=== PATIENT | female | born 1975 | race Caucasian/White ===

== ENCOUNTER 2020-06-09 12:45 | Emergency (ER) | payer OTHER, BC, SELFPAY ==
--- NOTE | 2020-06-09 12:57 | ED.UPPEXIN ---
HPI - Extremity Injury (Upper) General Chief Complaint: Extremity Problem,Nontraumatic Stated Complaint: Arm injury Time Seen by Provider: 06/09/20 13:02 Source: patient and RN notes reviewed History of Present Illness HPI narrative: Patient is a 44-year-old female who presents the urgent care with complaints of right bicep pain. 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 Patient states she has been doing this for the last 6 months and is noted the pain does subside when she is off work for several days. Patient has taken naproxen intermittently for the pain and states that sometimes it gets better and sometimes it is worse . Patient has used ice to sleep at night. Denies of any known trauma or injury. No other acute complaints. No acute distress noted. Patient read the plan of care. Related Data Home Medications Medication Instructions Recorded Confirmed vortioxetine [Trintellix] 10 mg PO DAILY 09/15/19 06/09/20 levonorgestrel 20 mcg/24 hours (5 1 device I-UTERINE ONCE 12/03/19 06/09/20 yrs) 52 mg intrauterine device Allergies Allergy/AdvReac Type Severity Reaction Status Date / Time No Known Allergies Allergy Verified 12/23/19 10:11 Review of Systems Review of Systems: Narrative: CONSTITUTIONAL: Denies fever, chills, or sweats. EYES: Denies visual changes, redness, or discharge. ENT: Denies rhinorrhea, congestion, sore throat, or otalgia. CARDIOVASCULAR: Denies chest pain, palpitations, or edema. RESPIRATORY: Denies cough or dyspnea. GASTROINTESTINAL: Denies abdominal pain, nausea, vomiting, or diarrhea. GENITOURINARY: Denies dysuria or hematuria. SKIN: Denies rash or itching. MUSCULOSKELETAL: Reports of right upper arm pain NEUROLOGIC: Denies headache, numbness, or weakness. All other systems reviewed are negative, except as documented in HPI. [facility] Social History Social History Smoking status: Never smoker Second hand tobacco smoke exposure: No Alcohol intake: current Comments At the time of my signature, I reviewed and agree with the nursing past medical, surgical, social, and family history. There is no relevant family history pertinent to the patient complaint. Exam Narrative: Exam Narrative: GENERAL: This is a well-nourished, well-developed patient, in no apparent distress. HEAD: normocephalic, atraumatic. EYES: PERRL. Sclera clear/white. Vision is grossly intact. EARS: External ears normal NOSE: External nose normal with no obvious nasal discharge, nares without redness, no rhinorrhea. THROAT: Mucous membranes moist NECK: Neck supple NEURO: awake, alert, and oriented to person, place and time. There were no obvious focal neurologic abnormalities. EXTREMITIES: No obvious Jadon sign to the right upper arm, no tenderness, no right arm deformity, range of motion within normal limits to right upper extremity with positive strong right radial pulse and capillary refill less than 2 seconds. Course Vital Signs Vital signs: Vital Signs Temperature 97.9 F 06/09/20 12:58 Pulse Rate 60 06/09/20 12:58 Respiratory Rate 20 06/09/20 12:58 Blood Pressure 136/69 06/09/20 12:58 Pulse Oximetry 99 06/09/20 12:58 Temperature 97.9 F 06/09/20 12:58 Pulse Rate 60 06/09/20 12:58 Respiratory Rate 20 06/09/20 12:58 Blood Pressure 136/69 06/09/20 12:58 Pulse Oximetry 99 06/09/20 12:58 Reviewed MDM - Extremity Injury (Upper) MDM Narrative Medical decision making narrative: Patient is aware that her pain is likely due to repetitiveness of muscle use. Advised the patient to continue using naproxen as needed for pain. May also use Tylenol or ibuprofen. Do not take NSAIDs together such as using naproxen and ibuprofen. May continue to use ice or heating pad for 20-minute intervals but do not sleep with the ice pack
[2020-06-09 12:58] VITALS: BP 136/69; PULSE 60; RESP 20; TEMP 36.6; O2SAT 99
== END 2020-06-09 13:17 | disposition home or self-care (01) ==
PROVIDERS: Emergency Provider Nurse Practitioner Family; PCP Family Medicine
DX: M75.21 Bicipital tendinitis, right shoulder (principal)
CPT/HCPCS: 99213; G0463

== ENCOUNTER 2020-12-22 16:14 | Outpatient (CLI) | payer OTHER, BC, SELFPAY ==
--- NOTE | 2020-12-22 16:35 | ECG_ITS ---
Measurements Intervals [place] Rate: 63 P: 43 [place]: 166 QRS: -17 QRSD: 115 T: 2 QT: 429 QTc: 441 Interpretive Statements SINUS RHYTHM WITH SINUS ARRHYTHMIA RSR' IN V1 OR V2, CONSIDER RIGHT VENTRICULAR HYPERTROPHY OR RIGHT VCD ST-T WAVE ABNORMALITY IN ANTERIOR LEADS- CONSIDER ISCHEMIA ABNORMAL ECG Electronically Signed On 12-22-2020 19:01:48 ENAMEL BUFFER by Aquilino Suggs D.O.
[2020-12-22 17:24] LABS: Anion Gap 6 mmol/L (8-16); Blood Urea Nitrogen 14 mg/dL (7-17); Calcium 9.4 mg/dL (8.4-10.2); Carbon Dioxide 34 mmol/L (22-30); Chloride 101 mmol/L (98-107); Estimated Glomerular Filt Rate > 60; Glucose 110 mg/dL (65-105); Potassium 3.3 mmol/L (3.4-5.0); Sodium 141 mmol/L (137-145)
== END 2020-12-22 16:15 | disposition home or self-care (01) ==
PROVIDERS: PCP Family Medicine; Visit Provider Anesthesiology
DX: Z01.818 Encounter for other preprocedural examination (principal); I10 Essential (primary) hypertension; R94.31 Abnormal electrocardiogram [ECG] [EKG]
CPT/HCPCS: 36415; 80048; 93005

== ENCOUNTER → 2020-12-26 02:12 | Outpatient (CLI) | payer OTHER, BC, SELFPAY ==
[2020-12-26 18:21] LABS: SARS-CoV-2 RNA PCR Negative
== END ==
PROVIDERS: PCP Family Medicine; Visit Provider Orthopaedic Surgery
DX: Z01.812 Encounter for preprocedural laboratory examination (principal); Z20.822 Contact with and (suspected) exposure to COVID-19
CPT/HCPCS: C9803; U0003; U0005

== ENCOUNTER 2020-12-29 00:32 | Day surgery (SDC) | payer OTHER, SELFPAY ==
[2020-12-22 13:50] VITALS: BMI 49.4
--- NOTE | 2020-12-28 11:58 | WPDANESEPPF ---
Anes - Initial Pre Proc Eval Procedure: Operation Date: 12/29/20 07:30 Proposed Procedures p Arthroscopic Subacromial Decompression, Rotator Cuff Repair Right Shoulder, Proceed As Indicated - Roque Quiñones MD Date/Time: 12/28/20 11:58 Surgeon: Roque Quiñones MD Pre Op Diagnosis: Rotator Cuff Tendonitis With Partial Thick.Rotator Patient Data Age: 45 Gender: F Height: 1.63 m Weight: 130.63 kg Allergies Allergy/AdvReac Type Severity Reaction Status Date / Time No Known Allergies Allergy Verified 12/26/20 08:36 Home Medications Medication Instructions Recorded Confirmed Type levonorgestrel 20 mcg/24 hours (6 1 device I-UTERINE ONCE 12/03/19 12/27/20 History yrs) 52 mg intrauterine device lisinopril 10 1 tablet PO DAILY #90 tablet 02/26/20 12/27/20 Rx mg-hydrochlorothiazide 12.5 mg tablet levothyroxine 125 mcg tablet 125 mcg PO DAILY #90 tablet 05/10/20 12/27/20 Rx vortioxetine 10 mg tablet 10 mg PO DAILY #90 tablet 06/15/20 12/27/20 Rx omeprazole 10 mg capsule,delayed 10 mg PO DAILY 06/30/20 12/27/20 History release Patient hx anesthesia problems: none Family hx anesthesia problems: none PMFSH Past Medical History Medical History (Updated 12/27/20 @ 09:07 by Mark Lee MD) Adjustment disorder, unspecified Anxiety Biceps tendinopathy of right upper extremity Essential (primary) hypertension Hyperlipidemia, unspecified Hypertension Hypothyroid Hypothyroidism (acquired) Impingement syndrome of right shoulder Migraine with aura, not intractable, without status migrainosus Morbid obesity with BMI of 40.0-44.9, adult Obstructive sleep apnea (adult) (pediatric) KRISTOFER (obstructive sleep apnea) Partial tear of right rotator cuff Perimenopausal Prehypertension Vaginal delivery x 2 Surgical History Surgical History H/O hernia repair (~2014) History of cholecystectomy History of dilatation and curettage (~2002) Previous section Family History Family History Mother Myocardial infarction Diabetes mellitus Grandparent Cancer, colon Sibling Hypertension Hypolipidemia Social History Social History Smoking status: Never smoker Second hand tobacco smoke exposure: No Alcohol intake: current Spiritual care concerns: No Anes - Eval Final PreProcedure Day of Procedure 12/28/20 11:58 Patient weight: obese Heart: regular rate and rhythm Lungs: clear to auscultation and normal air movement Airway: Mallampati scale class II Neurological: alert and oriented Last oral intake: >/= 8 hours ASA classification: III Emergent: no Anesthetic plan: proceed Anesthesia type and monitoring: general LMA and ETT Informed Consent: The patient's anesthetic plan and its attendant risks and benefits were discussed with the patient/family/POA. Questions were solicited and answers provided to the satisfaction of the patient/family/POA.
--- NOTE | 2020-12-28 11:59 | WPDANESPNB ---
Anes - Peripheral Nerve Block Date/Time: 12/28/20 11:59 I have discussed with the patient/family/POA the placement of a peripheral nerve block for post-operative pain management, including associated risks, benefits, complications, and side effects. Alternative methods of post-operative analgesia were detailed. Questions were solicited and answers provided to the satisfaction of the patient/family/POA. Time-Out: A pre-procedural Time-Out was completed immediately before starting the procedure and confirmed: Patient Identification, Site, Procedure, Patient Position and the Availability of Requisite Equipment. Clinical Indications: Acute post-operative pain management requested by the operative surgeon. Nerve Block Insertion Note Needle: 22 gauge, stimulating, insulated echogenic needle.
[2020-12-29] VITALS (14 sets, daily range): BP systolic 103–153; BP diastolic 56–86; PULSE 60–84; RESP 10–20; TEMP 36.1–36.3; O2SAT 90–98
[2020-12-29] MEDS: ACETAMINOPHEN 500 MG TABLET 1000 MG PO (07:05)
[2020-12-29] MEDS: LACTATED RINGERS 1,000 ML 30 ML IV CONT ×2 (07:07→09:24)
[2020-12-29] MEDS: KETOROLAC 15 MG/ML VIAL (*BKC) IV PUSH (07:08)
--- NOTE | 2020-12-29 07:11 | WPDHPUPDATE1 ---
History and Physical Update Update Date/Time: 12/29/20 07:11 History and Physical has been reviewed, including an updated exam of the patient. There are NO changes in the patient's condition. Risks, benefits, and alternatives have been discussed and questions answered. Patient agrees to proceed with procedure.
[2020-12-29] MEDS: ceFAZolin 3 GM/D5W 100 ML 100 ML IVPB (08:14)
[2020-12-29] MEDS: BUPIVACAINE/EPINEPHRINE 0.5% 30 ML VIAL INFILTRATE (08:15)
[2020-12-29] MEDS: ONDANSETRON INJ 4 MG/2 ML VIAL IV PUSH (09:57)
[2020-12-29] MEDS: SCOPOLAMINE 1.5 MG PATCH TRANSDERM (10:05)
[2020-12-29] MEDS: HALOPERIDOL LACTATE 5 MG/ML VIAL 1 MG IV PUSH (10:06)
[2020-12-29] MEDS: diphenhydrAMINE HCl INJ 50 MG/ML VIAL 25 MG IV PUSH (10:56)
--- NOTE | 2020-12-29 11:45 | PM.PROC ---
Procedure Note - Detailed Date of procedure: 12/29/20 Pre-op diagnosis: Rotator Cuff Tendonitis With Partial Thick.Rotator Post-op diagnosis: other (1. Impingement syndrome shoulder 2. High-grade partial bursal side rotator cuff tear.) Procedure performed: 1. Arthrosocopic rotator cuff repair. 2. Arthroscopic subacromial decompression. Description of procedure: The rotator cuff was torn on the bursal side with a split. No retraction. Involvement of approximately 50% of the tendon. This corresponded to the area of interstitial partial tear. Bursal tear was not observed on the MRI likely due to the lack of tissue retraction or displacement. Tear was repaired with a single suture anchor and a modified Arun-Harshil repair technique. Subacromial spur treated with acromioplasty. Low-grade less than 15% partial articular tear noted in the infraspinatus. This was treated with debridement. The remaining articular structures were entirely normal. Slight hyperemia at the area of the bursal side tear noted on the articular side at the supraspinatus tendon. The tissue otherwise appeared normal and there was a normal anatomic cable. Implants: Tornier Piton anchor 2.8mm double suture loaded. Anesthesia: GETA and regional Surgeon: Roque Quiñones MD Ui Ux Engineer: Tuyet Aceves PA-C Estimated blood loss (mL): 10 Complications: None Condition: stable Disposition: PACU Findings: Physician assistant professor of life sciences, Tuyet Aceves PA-C, required for surgery; including patient positioning, draping, arthroscopic camera operation, maintaining instrument position, suture retrieval, wound closure, and dressing and sling placement. Brief history: The patient complained of persistent pain with overhead and reaching activities. Pain persisted despite physical therapy and cortisone injections. Operative details: Patient is extremely obese. Interscalene block was deferred. Preoperative antibiotics were given. The patient was brought to the operating room. Careful positioning in the lateral decubitus position was accomplished. The head neck were carefully positioned. An axillary roll was placed. The shoulder was examined. The shoulder was prepped and draped in the usual sterile fashion. Standard posterior and anterior arthroscopic portals were established. The shoulder was inspected. Light debridement of the articular posterior cuff performed. Attention was turned to the subacromial space. A complete bursectomy was performed. An accessory lateral portal was created. The acromion was clearly visualized. The coracoacromial ligament was released. Careful acromioplasty was performed utilizing views from both lateral and posterior. The area of the partial articular tear was marked. On the bursal side there was only mild evidence of impingement but the tendon felt very robust and essentially normal to palpation. More anteriorly at the supraspinatus there was significant bursal side tear with splitting into the delaminated area of supraspinatus tendon. This was amenable to repair and the footprint was lightly debrided. Bone quality was excellent and the bioabsorbable anchor cracked upon attempted insertion. It was removed and a metallic anchor was placed in its place. The sutures were passed in a modified Arun-Harshil configuration. The antegrade suture passer was used. The anterior and posterior suture limbs brought the opposed ends of the tendon together anatomically. The medial to lateral suture provided nice compression of the tendon on the rotator cuff footprint. The arthroscopic instruments were removed. The wounds were closed with interrupted 3-0 Monocryl suture followed by Steri-Strips. A sterile dressing was applied with a sling. The patient was extubated and brought to the recovery room in stable condition. There were no complications.
[2020-12-29] MEDS: oxyCODONE HCL (*CRX) 5 MG TAB IR PO (12:33)
== END 2020-12-29 13:24 | disposition home or self-care (01) ==
PROVIDERS: PCP Family Medicine; Visit Provider Orthopaedic Surgery
PROC: (CPT 29805; principal; 2020-12-29 07:30)
DX: M75.111 Incomplete rotator cuff tear or rupture of right shoulder, not specified as traumatic (principal); M75.41 Impingement syndrome of right shoulder; I10 Essential (primary) hypertension; E78.5 Hyperlipidemia, unspecified; E03.9 Hypothyroidism, unspecified; G47.33 Obstructive sleep apnea (adult) (pediatric); F41.9 Anxiety disorder, unspecified; E66.01 Morbid (severe) obesity due to excess calories; Z68.42 Body mass index [BMI] 45.0-49.9, adult
CPT/HCPCS: 29827; 29826; A4565; A9270; C1713; J0690; J1100; J1170; J1200; J1630; J1885; J2250; J2405; J2704; J2710; J3010; J7120

== ENCOUNTER 2021-04-19 22:53 | Emergency (ER) | payer BC, SELFPAY ==
[2021-04-19 22:54] VITALS: BP 186/103; PULSE 82; RESP 16; TEMP 36.7; O2SAT 95
--- NOTE | 2021-04-19 23:00 | PC.NURSE ---
verbal lab order from erp dr bernardo.
[2021-04-19 23:12] LABS: Basophils Absolute Auto 0.1 K/mm3 (0.0-0.1); Basophils Percent Auto 0.7 % (0.2-1.2); Eosinophils Absolute Auto 0.3 K/mm3 (0-0.3); Hematocrit 41.3 % (37.0-47.0); Hemoglobin 13.7 g/dL (12.0-15.0); Immature Granulocyte Absolute 0.03 K/mm3 (0.00-0.031); Immature Granulocyte Percent A 0.4 % (0-0.5); Lymphocytes Percent Auto 38.3 % (18.3-44.2); Mean Corpuscular HGB Conc 33.2 g/dl (32-36); Mean Corpuscular Hemoglobin 30.2 pg (26-34); Mean Corpuscular Volume 91.2 fl (80-100); Mean Platelet Volume 10.1 fl (7.4-10.4); Monocytes Absolute Auto 0.5 K/mm3 (0.1-0.6); Monocytes Percent Auto 6.9 % (2.6-8.5); Neutrophils Absolute Auto 3.8 K/mm3 (1.3-6.7); Neutrophils Percent Auto 49.7 % (45.5-73.1); Platelet Count Result 284 k/mm3 (150-375); Red Blood Count 4.53 M/mm3 (4.2-5.4); Red Cell Distribution Width 11.9 % (11.5-14.5); White Blood Count 7.6 K/mm3 (4.5-10.0)
[2021-04-19 23:21] LABS: INR 0.9
[2021-04-19 23:22] LABS: Partial Thromboplastin Time 28.9 SECONDS (22.3-36.8)
[2021-04-19 23:24] LABS: Anion Gap 9 mmol/L (8-16); Blood Urea Nitrogen 13 mg/dL (7-17); Calcium 9.4 mg/dL (8.4-10.2); Carbon Dioxide 29 mmol/L (22-30); Chloride 103 mmol/L (98-107); Estimated CRCL calculation 108 ml/min; Estimated Glomerular Filt Rate > 60; Glucose 131 mg/dL (65-105); Sodium 141 mmol/L (137-145)
[2021-04-19 23:33] LABS: D Dimer < 0.22 ug/mL (<0.48)
--- NOTE | 2021-04-20 00:33 | ED.GENADULT ---
HPI - General Adult General Chief complaint: Unspecified Stated complaint: blood clot left leg Time Seen by Provider: 04/20/21 00:12 Source: patient Mode of arrival: ambulatory Limitations: no limitations History of Present Illness HPI narrative: 45-year-old with history of hypertension, hyperlipidemia, varicosities of the legs here with complaints of pain and swelling on the left thigh. Patient states that she woke was sitting on the couch started to notice some pain and swelling on the left thigh. She is worried that it could be a blood clot. No previous history of any DVTs in the past. . She denies any shortness of breath or chest pain. Onset (ago): hour(s) (2) Location: lower extremity (Left thigh) Radiation: non-radiation Severity: mild Quality: aching Pain Consistency: constant Relieving factors: none Exacerbating factors: none Associated symptoms: denies other symptoms Related Data Home Medications Medication Instructions Recorded Confirmed levonorgestrel 20 mcg/24 hours (6 1 device I-UTERINE ONCE 12/03/19 12/27/20 yrs) 52 mg intrauterine device omeprazole 10 mg capsule,delayed 10 mg PO DAILY 06/30/20 12/27/20 release Allergies Allergy/AdvReac Type Severity Reaction Status Date / Time No Known Allergies Allergy Verified 04/19/21 22:57 Review of Systems Review of Systems: All systems reviewed & are unremarkable except as noted in HPI and below Constitutional: Constitutional: Reports no additional constitutional complaints Eyes: Eyes: Reports no additional eye complaints ENT: Reports system reviewed and no additional complaints, except as documented Cardiovascular: Cardiovascular: Reports no additional cardiovascular complaints Respiratory: Respiratory: Reports no additional respiratory complaints Gastrointestinal: Gastrointestinal: Reports no additional gastrointestinal complaints Musculoskeletal: Musculoskeletal: Reports as per HPI Integumentary/Breasts: Skin/Breast: Reports system reviewed and no additional complaints, except as docu [facility] Past Medical History Medical History Adjustment disorder, unspecified Anxiety Biceps tendinopathy of right upper extremity Essential (primary) hypertension Hyperlipidemia, unspecified Hypertension Hypothyroid Hypothyroidism (acquired) Impingement syndrome of right shoulder Migraine with aura, not intractable, without status migrainosus Morbid obesity with BMI of 40.0-44.9, adult Obstructive sleep apnea (adult) (pediatric) KRISTOFER (obstructive sleep apnea) Partial tear of right rotator cuff Perimenopausal Prehypertension Vaginal delivery x 2 Surgical History Surgical History H/O hernia repair (~2014) History of cholecystectomy History of dilatation and curettage (~2002) History of repair of right rotator cuff (~12/29/20) Rt, with Subacromial Decompression Previous section Family History Family History Mother Myocardial infarction Diabetes mellitus Grandparent Cancer, colon Sibling Hypertension Hypolipidemia Social History Social History Smoking status: Never smoker Second hand tobacco smoke exposure: No Alcohol intake: current Gender identity (if verbalized by the patient): Female Sexual Orientation (if Verbalized by the Patient): Straight or Heterosexual Spiritual care concerns: No Exam Narrative: Exam Narrative: GENERAL: Well-appearing, well-nourished, and in no acute distress. HEAD: Normocephalic, atraumatic. EYES: PERRLA and EOMI. NECK: Supple. CHEST: Clear to auscultation. No respiratory distress. HEART: Regular rate and rhythm. No murmur heard. Normal peripheral pulses. ABDOMEN: Soft, nontender, nondistended, normal active bowel sounds. EXTREMITIES: Normal range of motion. No bk
[2021-04-20 00:45] VITALS: BP 134/81; PULSE 78; RESP 16; O2SAT 97
== END 2021-04-20 00:47 | disposition home or self-care (01) ==
PROVIDERS: Emergency Medicine; Emergency Provider Family Medicine; PCP Family Medicine
DX: I80.3 Phlebitis and thrombophlebitis of lower extremities, unspecified (principal); I10 Essential (primary) hypertension; E03.9 Hypothyroidism, unspecified
CPT/HCPCS: 36415; 80048; 85025; 85380; 85610; 85730; 99283

== ENCOUNTER 2021-08-28 11:28 | Outpatient (CLI) | payer BC, SELFPAY ==
--- NOTE | ~2021-08-28 | US_ITS ---
EXAMINATION: US venous doppler LE EXAM DATE: 08/28/2021 12:04 INDICATION: Left-sided DVT. TECHNIQUE: Multiple grayscale, color flow and Doppler images of the lower extremity deep venous syste ms bilaterally were obtained and reviewed. There is no prior study for comparison. FINDINGS: Right side: The right common femoral, femoral and profunda veins demonstrate normal color flow, respi ratory variation, augmentation and compressibility. Compressibility, color flow confirmed within the right popliteal, posterior tibial, peroneal, and greater saphenous veins. Left side: The left common femoral, femoral and profunda veins demonstrate normal color flow, respira tory variation, augmentation and compressibility. Compressibility, color flow confirmed within the l eft popliteal, posterior tibial, peroneal, and greater saphenous veins. IMPRESSION: 1. No lower extremity deep venous thrombosis bilaterally. Reviewed, dictated and finalized at location A.
== END 2021-08-28 11:29 | disposition home or self-care (01) ==
LOC: ANHIMG 11:30
PROVIDERS: PCP Family Medicine; Visit Provider Family Medicine
DX: I82.402 Acute embolism and thrombosis of unspecified deep veins of left lower extremity (principal)
CPT/HCPCS: 93971

== ENCOUNTER 2021-09-27 08:39 | Outpatient (CLI) | payer BC, SELFPAY ==
--- NOTE | ~2021-09-27 | MR_ITS ---
EXAMINATION: MR knee LT wo con DATE: 09/27/2021 10:03 INDICATION: Muscle strain with left knee pain and swelling TECHNIQUE: Magnetic resonance imaging (MRI) of the left knee was performed without intravenous contra st. Sequences included coronal PD-weighted FSE, coronal PD-weighted FS FSE, sagittal T2-weighted FSE , sagittal PD-weighted FS FSE and axial PD weighted fat saturated FSE. COMPARISON: Left knee radiographs dated 08/30/21 FINDINGS: Medial compartment: Medial meniscus is normal. [place] region of deep chondral ulceration without underlying cortical irre gularity or degenerative subcortical changes extending 1.8 cm AP and 5 mm medial to lateral along the anterior weightbearing medial femoral condyle. Partial-thickness chondral fissuring at the posterior weightbearing medial femoral condyle with mild underlying articular cortical irregularity. Lateral compartment: Lateral meniscus is normal. Articular cartilage is normal. Patellofemoral compartment: Deep chondral ulceration at the central aspect of the medial patellar facet with underlying subarticu lar cystlike change. Additional deep chondral ulceration origin without degenerative subchondral ruelas ges at the patellar apical ridge and a severe partial thickness chondral ulceration at the medial yanira e of the lateral facet. Deep chondral fissuring at the trochlear groove, medial trochlea and inferome dial aspect of the lateral trochlea. Additional tiny focus of subarticular increased marrow signal at the central aspect of the medial trochlea Ligaments and tendons: Anterior and posterior cruciate ligaments are normal. The medial collateral ligament and fibular omi ateral ligament complex are normal. The extensor mechanism is normal. The visualized medial and later al hamstring tendons as well as the iliotibial band are normal. Fluid: Small to moderate-sized left knee joint effusion. No loose osteochondral bodies identified. Small Claribel er's cyst. Osseous/other: Bone alignment is normal. No fracture or pathologic marrow replacing process. Prominent subcutaneous varicosities anterior to the knee. IMPRESSION: 1. Mild osteoarthritis with moderate and high-grade chondromalacia in the medial and patellofemoral c ompartments. 2. Small to moderate-sized left knee joint effusion. 3. Small Romero's cyst. Reviewed, dictated and finalized at location A. INSPECTOR IMPRESSION: 1. Mild osteoarthritis with moderate and high-grade chondromalacia in the media l and patellofemoral compartments. 2. Small to moderate-sized left knee joint effusion. 3. Small Romero's cyst.
== END 2021-09-27 08:40 | disposition home or self-care (01) ==
LOC: ANHIMG 08:40
PROVIDERS: PCP Family Medicine; Visit Provider Orthopaedic Surgery
DX: S83.207A Unspecified tear of unspecified meniscus, current injury, left knee, initial encounter (principal); M17.12 Unilateral primary osteoarthritis, left knee; M94.262 Chondromalacia, left knee; M25.462 Effusion, left knee; M71.22 Synovial cyst of popliteal space [Baker], left knee
CPT/HCPCS: 73721

== ENCOUNTER 2021-10-26 07:21 | Outpatient (CLI) | payer BC, SELFPAY ==
--- NOTE | ~2021-10-26 | MM_ITS ---
EXAMINATION: MM screening [place] BI w [place]on HISTORY: Screening TECHNIQUE: Craniocaudal and mediolateral oblique 3-D tomosynthesis images were obtained and synthetic 2-D images were generated. CAD analysis was submitted and interpreted. COMPARISON: Comparison to multiple prior studies sequentially, with oldest reviewed study dated 12/25. BREAST PARENCHYMAL COMPOSITION: There are scattered areas of fibroglandular density. FINDINGS: There is no evidence of suspicious mass, calcification, or architectural distortion to sugg est malignancy in either breast. There has been no suspicious interval change. IMPRESSION: 1. No mammographic evidence of malignancy. 2. Recommend routine screening mammography in one year. BI-RADS Category 1: Negative Reviewed, dictated and finalized at location A. SAFETY INSPECTOR
== END 2021-10-26 07:22 | disposition home or self-care (01) ==
LOC: ANHIMG 07:22
PROVIDERS: PCP Family Medicine; Visit Provider Obstetrics & Gynecology
DX: Z12.31 Encounter for screening mammogram for malignant neoplasm of breast (principal)
CPT/HCPCS: 77063; 77067

== ENCOUNTER 2022-06-04 00:16 | Day surgery (SDC) | payer BC, SELFPAY ==
[2022-05-16 08:27] VITALS: BMI 49.7
[2022-06-04 06:36] VITALS: BP 162/85; PULSE 84; RESP 18; TEMP 36.1; O2SAT 99
[2022-06-04 06:37] LABS: Glucose Point of Care 110 mg/dl (65-105)
[2022-06-04] MEDS: LACTATED RINGERS 1,000 ML 150 ML IV CONT (06:43)
--- NOTE | 2022-06-04 07:20 | PM.HPGS ---
History of Present Illness History of Present Illness Consent: Risks, benefits, and alternatives have been discussed and questions answered. Patient agrees to proceed with procedure. Chief complaint: neplasm screening Narrative: Alba Phelan is a 46 year old female here for first screening colonoscopy Review of Systems Constitutional: Constitutional: Denies headache(s) and Denies weakness Eyes: Eyes: Denies blurry vision ENT: Reports Normal hearing present, Denies headache(s) and Denies neck pain Cardiovascular: Cardiovascular: Denies chest pain and Denies dyspnea Respiratory: Respiratory: Denies dyspnea Gastrointestinal: Gastrointestinal: Reports no additional gastrointestinal complaints Genitourinary: Genitourinary: Denies dysuria Musculoskeletal: Musculoskeletal: Denies neck pain Integumentary/Breasts: Skin/Breast: Denies dry skin Neurologic: Reports Normal hearing present, Denies headache(s) and Denies weakness Psychiatric: Psychiatric: Denies anxiety Endocrine: Endocrine: Denies change in body appearance Hematologic/Lymphatic: Hematologic/Lymphatic: Denies easy bleeding Allergic/Immunologic: Allergic/Immunologic: Denies urticaria PMFSH Past Medical History Medical History (Updated 06/04/22 @ 07:21 by Roshan Hutson MD) Adjustment disorder, unspecified Anxiety Biceps tendinopathy of right upper extremity Colon cancer screening Essential (primary) hypertension Hyperlipidemia, unspecified Hypertension Hypothyroid Hypothyroidism (acquired) Impingement syndrome of right shoulder Impingement syndrome, shoulder, left Migraine with aura, not intractable, without status migrainosus Morbid obesity with BMI of 40.0-44.9, adult Obstructive sleep apnea (adult) (pediatric) KRISTOFER (obstructive sleep apnea) CPAP Partial tear of right rotator cuff Perimenopausal Prehypertension Vaginal delivery x 2 Surgical History Surgical History H/O hernia repair (~2014) History of cholecystectomy History of dilatation and curettage (~2002) History of repair of right rotator cuff (~12/29/20) Rt, with Subacromial Decompression Previous section Family History Family History Mother Myocardial infarction Diabetes mellitus Grandparent Cancer, colon Sibling Hypertension Hypolipidemia Social History Social History Smoking status: Never smoker Second hand tobacco smoke exposure: No Alcohol intake: current Substance use type: does not use Living arrangements: with family Gender identity (if verbalized by the patient): Female Sexual Orientation (if Verbalized by the Patient): Straight or Heterosexual Spiritual care concerns: No Meds Home Medications and Allergies Home Medications Medication Instructions Recorded Confirmed Type levonorgestrel 20 mcg/24 hours (7 1 device intrauterine ONCE 12/03/19 05/28/22 History yrs) 52 mg intrauterine device (Mirena) omeprazole 10 mg capsule,delayed 10 mg PO DAILY 06/30/20 05/28/22 History release metformin 500 mg tablet,extended 500 mg PO BID #180 tabs 11/03/21 05/28/22 Rx release 24 hr ondansetron HCl 4 mg tablet 4 mg PO Q6H PRN nausea and 03/23/22 05/28/22 Rx vomiting #20 tabs vortioxetine 10 mg tablet 10 mg PO DAILY 05/16/22 05/28/22 History (Trintellix) semaglutide 0.25 mg or 0.5 mg (2 0.5 mg (0.4 mL) subcut WEEKLY #1.5 05/21/22 06/04/22 Rx mg/1.5 mL) subcutaneous pen mL injector (Ozempic) levothyroxine 125 mcg tablet 125 mcg PO DAILY #90 tabs 05/28/22 06/04/22 Rx (Synthroid) lisinopril 10 1 tablet PO DAILY #90 tabs 05/28/22 06/04/22 Rx mg-hydrochlorothiazide 12.5 mg tablet Allergies Allergy/AdvReac Type Severity Reaction Status Date / Time No Known Allergies Allergy Verified 06/04/22 06:35 Vital
--- NOTE | 2022-06-04 07:21 | WPDANESEPPF ---
Anes - Initial Pre Proc Eval Procedure: Operation Date: 06/04/22 07:30 Proposed Procedures p Screening Colonoscopy - Roshan Hutson MD Date/Time: 06/04/22 07:21 Surgeon: Roshan Hutson MD Pre Op Diagnosis: neplasm screening Patient Data Age: 46 Gender: F Height: 1.63 m Weight: 133 kg Last Vital Signs Temp 97.0 F L 06/04/22 06:36 Pulse 84 06/04/22 06:36 Resp 18 06/04/22 06:36 BP 162/85 H 06/04/22 06:36 Pulse Ox 99 06/04/22 06:36 O2 Del Method Room Air 06/04/22 06:36 Allergies Allergy/AdvReac Type Severity Reaction Status Date / Time No Known Allergies Allergy Verified 06/04/22 06:35 Home Medications Medication Instructions Recorded Confirmed Type levonorgestrel 20 mcg/24 hours (7 1 device intrauterine ONCE 12/03/19 05/28/22 History yrs) 52 mg intrauterine device (Mirena) omeprazole 10 mg capsule,delayed 10 mg PO DAILY 06/30/20 05/28/22 History release metformin 500 mg tablet,extended 500 mg PO BID #180 tabs 11/03/21 05/28/22 Rx release 24 hr ondansetron HCl 4 mg tablet 4 mg PO Q6H PRN nausea and 03/23/22 05/28/22 Rx vomiting #20 tabs vortioxetine 10 mg tablet 10 mg PO DAILY 05/16/22 05/28/22 History (Trintellix) semaglutide 0.25 mg or 0.5 mg (2 0.5 mg (0.4 mL) subcut WEEKLY #1.5 05/21/22 06/04/22 Rx mg/1.5 mL) subcutaneous pen mL injector (Ozempic) levothyroxine 125 mcg tablet 125 mcg PO DAILY #90 tabs 05/28/22 06/04/22 Rx (Synthroid) lisinopril 10 1 tablet PO DAILY #90 tabs 05/28/22 06/04/22 Rx mg-hydrochlorothiazide 12.5 mg tablet Laboratory Tests 06/04/22 06:31 POC Capillary Glucose 110 mg/dl H mg/dl (65-105) Patient hx anesthesia problems: none Family hx anesthesia problems: none Results Review: All pre-operative results and documents have been reviewed as part of the pre-operative evaluation. [facility] Past Medical History Medical History (Updated 06/04/22 @ 07:21 by Roshan Hutson MD) Adjustment disorder, unspecified Anxiety Biceps tendinopathy of right upper extremity Colon cancer screening Essential (primary) hypertension Hyperlipidemia, unspecified Hypertension Hypothyroid Hypothyroidism (acquired) Impingement syndrome of right shoulder Impingement syndrome, shoulder, left Migraine with aura, not intractable, without status migrainosus Morbid obesity with BMI of 40.0-44.9, adult Obstructive sleep apnea (adult) (pediatric) KRISTOFER (obstructive sleep apnea) CPAP Partial tear of right rotator cuff Perimenopausal Prehypertension Vaginal delivery x 2 Surgical History Surgical History H/O hernia repair (~2014) History of cholecystectomy History of dilatation and curettage (~2002) History of repair of right rotator cuff (~12/29/20) Rt, with Subacromial Decompression Previous section Family History Family History Mother Myocardial infarction Diabetes mellitus Grandparent Cancer, colon Sibling Hypertension Hypolipidemia Social History Social History Smoking status: Never smoker Second hand tobacco smoke exposure: No Alcohol intake: current Substance use type: does not use Living arrangements: with family Gender identity (if verbalized by the patient): Female Sexual Orientation (if Verbalized by the Patient): Straight or Heterosexual Spiritual care concerns: No Anes - Eval Final PreProcedure Day of Procedure 06/04/22 07:21 Patient weight: super morbidly obese Heart: regular rate and rhythm Lungs: clear to auscultation Airway: Mallampati scale class III Neurological: alert and oriented Last oral intake: >/= 8 hours ASA classification: III Emergent: no Anesthetic plan: proceed Results Review: All pre-operative results and documents have been review
[2022-06-04 07:51] VITALS: BP 111/64; PULSE 74; RESP 13; O2SAT 100
[2022-06-04 08:01] VITALS: BP 114/74; PULSE 72; RESP 14; O2SAT 100
[2022-06-04 08:11] VITALS: BP 117/73; PULSE 68; RESP 17; O2SAT 100
== END 2022-06-04 08:16 | disposition home or self-care (01) ==
PROVIDERS: PCP Family Medicine; Visit Provider Internal Medicine Gastroenterology
PROC: 0DJD8ZZ Inspection of Lower Intestinal Tract, Via Natural or Artificial Opening Endoscopic (ICD-10-PCS; CPT 45378; principal; 2022-06-04 07:30)
DX: Z12.11 Encounter for screening for malignant neoplasm of colon (principal); K64.8 Other hemorrhoids; E03.9 Hypothyroidism, unspecified; Z79.84 Long term (current) use of oral hypoglycemic drugs; F41.9 Anxiety disorder, unspecified; I10 Essential (primary) hypertension; E78.5 Hyperlipidemia, unspecified; G47.33 Obstructive sleep apnea (adult) (pediatric); Z90.49 Acquired absence of other specified parts of digestive tract; E66.01 Morbid (severe) obesity due to excess calories; Z68.43 Body mass index [BMI] 50.0-59.9, adult
CPT/HCPCS: 45378; 82948; J2704; J7120

== ENCOUNTER → 2022-07-23 08:05 | Outpatient (CLI) | payer BC, SELFPAY ==
--- NOTE | ~2022-07-23 | US_ITS ---
EXAMINATION: US pelvic complete w TV DATE: 07/23/2022 08:39 INDICATION: Assess IUD position TECHNIQUE: Multiple transabdominal and endovaginal sonographic images of the pelvis were obtained. COMPARISON: None. FINDINGS: The uterus measures 7.9 x 3.7 x 5.6 cm. The endometrial complex measures 3 mm. The IUD is i n expected position. The right ovary measures 2.5 x 1.5 x 2.1 cm. The left ovary measures 5.3 x 4.1 x 3.7 cm and contains a 4.9 cm simple cyst. There is normal vascular flow in the ovaries. There is no free fluid in the pelvis. IMPRESSION: 1. IUD in expected position. Reviewed, dictated and finalized at location A.
== END ==
PROVIDERS: PCP Obstetrics & Gynecology; Visit Provider Obstetrics & Gynecology
DX: Z30.431 Encounter for routine checking of intrauterine contraceptive device (principal); N83.202 Unspecified ovarian cyst, left side; N83.201 Unspecified ovarian cyst, right side
CPT/HCPCS: 76830; 76856

== ENCOUNTER 2023-06-01 10:47 | Emergency (ER) | payer BC, SELFPAY ==
[2023-06-01 11:00] VITALS: BP 125/76; PULSE 98; RESP 16; TEMP 36.4; O2SAT 98
--- NOTE | 2023-06-01 11:34 | ED.URI ---
HPI - URI/Sore Throat General Chief Complaint: Upper Respiratory Infection Stated Complaint: Sore Throat History of Present Illness HPI Narrative: Patient presents with a sore throat. Patient states she has a child at home positive for strep throat. No trouble swallowing no drooling Related Data Home Medications Medication Instructions Recorded Confirmed omeprazole 10 mg capsule,delayed 10 mg PO DAILY 06/30/20 06/01/23 release levonorgestrel 21 mcg/24 hours (8 1 device intrauterine ONCE 04/08/23 06/01/23 yrs) 52 mg intrauterine device (Mirena) Allergies Allergy/AdvReac Type Severity Reaction Status Date / Time No Known Allergies Allergy Verified 06/01/23 11:18 Review of Systems Review of Systems: CONSTITUTIONAL: Denies fever, chills, or sweats. EYES: Denies visual changes, redness, or discharge. ENT: Denies rhinorrhea, congestion, sore throat, or otalgia. CARDIOVASCULAR: Denies chest pain, palpitations, or edema. RESPIRATORY: Denies cough or dyspnea. GASTROINTESTINAL: Denies abdominal pain, nausea, vomiting, or diarrhea. GENITOURINARY: Denies dysuria or hematuria. SKIN: Denies rash or itching. MUSCULOSKELETAL: Denies back pain, joint pain, or myalgia. NEUROLOGIC: Denies headache, numbness, or weakness. PSYCHIATRIC: Denies anxiety or depression. [facility] Past Medical History Medical History Anxiety Biceps tendinopathy of right upper extremity Colon cancer screening Essential (primary) hypertension Hyperlipidemia, unspecified Hypertension Hypothyroid Hypothyroidism (acquired) Impingement syndrome of right shoulder Impingement syndrome, shoulder, left Migraine with aura, not intractable, without status migrainosus Morbid obesity with BMI of 40.0-44.9, adult Obstructive sleep apnea (adult) (pediatric) KRISTOFER (obstructive sleep apnea) CPAP Partial tear of right rotator cuff Perimenopausal Prehypertension Vaginal delivery x 2 Surgical History Surgical History H/O hernia repair (~2014) History of cholecystectomy History of dilatation and curettage (~2002) History of repair of right rotator cuff (~12/29/20) Rt, with Subacromial Decompression Previous section Family History Family History Mother Myocardial infarction Diabetes mellitus Grandparent Cancer, colon Sibling Hypertension Hypolipidemia Social History Social History Smoking status: Never smoker Second hand tobacco smoke exposure: No Alcohol intake: current Substance use type: does not use Lack of Transportation: No Lack of Food: Never True Current Housing: I Have Housing Concerned About Future Housing: No Difficulty Paying Gas/Electric Bills: No Difficulty Paying for Meds: No Currently Unemployed: No Education: Bachelor's Degree Difficulty w/ Childcare or Family Care: No Living arrangements: with family Gender identity (if verbalized by the patient): Female Sexual Orientation (if Verbalized by the Patient): Straight or Heterosexual Spiritual care concerns: No Exam Narrative: The patient is a well-developed, well-nourished in no acute distress. SKIN: Skin is warm and dry without erythema, swelling or exudate. There is good turgor. No tenting. HEAD: Atraumatic. Normocephalic. No temporal or scalp tenderness. EYES: Moist and bright. Sclera and conjunctivae normal. No discharge. PERRLA. Extraocular motions intact. Gross visual acuity intact. EARS: Pinna is normal shape and contour. Clear external auditory canals. TM pearly john with good cone of light, no erythema or suppuration. Bilateral cerumen noted no gross hearing deficit. NOSE: pink, moist mucosa with good air movement. Clear rhinorrhea without nasal flaring. Septum midline. Mouth: moist mu
== END 2023-06-01 11:37 | disposition home or self-care (01) ==
PROVIDERS: Emergency Provider Nurse Practitioner Family; PCP Family Medicine
DX: J02.0 Streptococcal pharyngitis (principal); I10 Essential (primary) hypertension; E78.5 Hyperlipidemia, unspecified; E03.9 Hypothyroidism, unspecified; E66.01 Morbid (severe) obesity due to excess calories; Z68.41 Body mass index [BMI] 40.0-44.9, adult; G47.33 Obstructive sleep apnea (adult) (pediatric)
CPT/HCPCS: 87880; 99213; G0463

== ENCOUNTER 2023-06-01 15:17 | Observation (INO) | payer BC, SELFPAY ==
[2023-06-01] VITALS (9 sets, daily range): BP systolic 118–136; BP diastolic 66–85; PULSE 67–93; RESP 16–21; TEMP 36.5–37.7; O2SAT 95–99; BMI 45.8
--- NOTE | ~2023-06-01 | CT_ITS ---
Clinical Indication: Syncope, atrial fibrillation CT Scan of the Chest with Contrast: Technique: Contiguous sections were acquired throughout the chest after intravenous administration of 100 cc of Omnipaque 350. Dose reduction technique was used on this scan by utilizing automated expos ure control and iterative reconstruction technique. The dose-length product (DLP) was 884.11 mGy-cm. Findings: There is no evidence of any significant mediastinal, hilar or axillary lymphadenopathy. There is no f illing defect in the pulmonary arterial tree to suggest pulmonary embolus. There is no evidence of ao rtic dissection or aneurysm. There is no evidence of pleural or pericardial effusion. The lungs are clear. No pulmonary nodules or infiltrates are noted. Images through the upper abdomen reveal no abnormalities. Impression: No evidence of pulmonary embolus, aortic dissection, or aortic aneurysm. Clear lungs. Reviewed, dictated and finalized at [facility]. Impression: No evidence of pulmonary embolus, aortic dissection, or aortic aneurysm. Clear lungs.
--- NOTE | ~2023-06-01 | XR_ITS ---
Portable chest x-ray Comparison: 09/15/2019 Clinical History: Atrial fibrillation Findings: Possible minimal central congestive change present. No consolidation or pleural effusion. Cardiomediastinal silhouette is stable. Bones and soft tissues are unremarkable. Impression: Possible mild central congestive change. Reviewed, dictated and finalized at [facility]. Impression: Possible mild central congestive change.
--- NOTE | ~2023-06-01 | US_ITS ---
EXAMINATION: US venous doppler [facility] DATE: 06/02/2023 09:27 INDICATION: Lower limb swelling. Syncope. TECHNIQUE: Grayscale ultrasound images without and with compression and Doppler ultrasound images of the bilateral lower extremity veins were obtained. COMPARISON: 04/27/2021 FINDINGS: The visualized portions of right common femoral vein, profunda (deep) femoral vein, femoral vein, pop liteal vein, posterior tibial veins, peroneal veins, gastrocnemius vein and greater saphenous vein ou tflow are patent. The visualized portions of left common femoral vein, profunda femoral vein, femoral vein, popliteal v ein, posterior tibial veins, peroneal veins, gastrocnemius vein and greater saphenous vein outflow ar e patent. IMPRESSION: 1. No deep venous thrombosis in either lower limb. Reviewed, dictated and finalized at location A.
--- NOTE | 2023-06-01 15:27 | ECG_ITS ---
Measurements Intervals [place] Rate: 81 P: [place]: 0 QRS: -23 QRSD: 121 T: -16 QT: 388 QTc: 453 Interpretive Statements ATRIAL FIBRILLATION BORDERLINE LEFT AXIS DEVIATION [QRS AXIS < -20] MODERATE INTRAVENTRICULAR CONDUCTION DELAY [110+ ms QRS DURATION] MODERATE VOLTAGE CRITERIA FOR LVH, CONSIDER NORMAL VARIANT [MEETS CRITERIA IN ONE OF: R(aVL), S(V1), R(V5), R(V5/V6)+S(V1)] MINIMAL ST DEPRESSION [0.025+ mV ST DEPRESSION] ABNORMAL RHYTHM ECG COMPARED TO ECG 12/22/2020 16:41:42 ATRIAL FIBRILLATION NOW PRESENT INTRAVENTRICULAR CONDUCTION DELAY NOW PRESENT ST (T WAVE) DEVIATION NOW PRESENT Electronically Signed On 06-02-2023 8:29:11 CDT by Eva Medina M.D.
[2023-06-01 15:42] LABS: Basophils Percent Auto 0.1 % (0.2-1.2); Eosinophils Absolute Auto 0.1 K/mm3 (0-0.3); Eosinophils Percent Auto 0.6 % (0-4.4); Hematocrit 40.9 % (37.0-47.0); Hemoglobin 13.5 g/dL (12.0-15.0); Immature Granulocyte Absolute 0.04 K/mm3 (0.00-0.031); Immature Granulocyte Percent A 0.4 % (0-0.5); Lymphocytes Absolute Auto 1.65 K/mm3 (0.9-3.2); Lymphocytes Percent Auto 16.1 % (18.3-44.2); Mean Corpuscular Volume 90.9 fl (80-100); Mean Platelet Volume 10.1 fl (7.4-10.4); Monocytes Absolute Auto 0.4 K/mm3 (0.1-0.6); Monocytes Percent Auto 3.6 % (2.6-8.5); Neutrophils Absolute Auto 8.1 K/mm3 (1.3-6.7); Neutrophils Percent Auto 79.2 % (45.5-73.1); Platelet Count Result 257 k/mm3 (150-375); Red Cell Distribution Width 12.1 % (11.5-14.5); White Blood Count 10.2 K/mm3 (4.5-10.0)
[2023-06-01] MEDS: SODIUM CHLORIDE 0.9% IV 1,000 ML 999 ML IV CONT (15:42)
[2023-06-01 15:52] LABS: Prothrombin Time 13.4 Seconds (11.1-14.7)
[2023-06-01 15:53] LABS: Alanine Aminotransferase 28 U/L (6-35); Albumin Level 4.4 g/dL (3.5-5.1); Alkaline Phosphatase 67 U/L (38-126); Anion Gap 7 mmol/L (8-16); Aspartate Amino Transferase 25 U/L (14-36); Bilirubin,Total 1.9 mg/dL (0.2-1.3); Blood Urea Nitrogen 14 mg/dL (7-17); Carbon Dioxide 32 mmol/L (22-30); Chloride 100 mmol/L (98-107); Estimated CRCL calculation 95 ml/min; Estimated Glomerular Filt Rate > 60; Glucose 125 mg/dL (65-110); Partial Thromboplastin Time 26.3 SECONDS (22.3-36.8); Potassium 3.4 mmol/L (3.4-5.0); Sodium 139 mmol/L (137-145)
[2023-06-01 16:04] LABS: Troponin I < 0.012 ng/mL (0.000-0.034)
[2023-06-01 16:09] LABS: Magnesium 1.8 mg/dL (1.6-2.3)
--- NOTE | 2023-06-01 16:24 | ED.GENADULT ---
HPI - General Adult General Chief complaint: Arrhythmia/Palpitations Stated complaint: afib Time Seen by Provider: 06/01/23 15:25 History of Present Illness HPI narrative: 47-year-old female presents to the emergency department for evaluation of cute onset of nausea vomiting and loss of bowel control along with a near syncopal episode. Patient reports that her children do have strep throat and she had a sore throat this morning. Patient went to urgent care and was diagnosed with strep throat due to a positive swab. Patient was started on amoxicillin. Patient went home took the amoxicillin and then had onset of nausea vomiting and near syncope loss of bowel control. Patient called EMS for the symptoms and was found to be in A-fib with RVR. Upon arrival to the emergency department patient is still in A-fib but her heart rate is controlled at this time. Patient has no prior cardiac history and has no prior history of A-fib. Patient does have history of hypertension and diabetes. Patient does report a family history of A-fib. Related Data Home Medications Medication Instructions Recorded Confirmed omeprazole 10 mg capsule,delayed 10 mg PO DAILY 06/30/20 06/01/23 release levonorgestrel 21 mcg/24 hours (8 1 device intrauterine ONCE 04/08/23 06/01/23 yrs) 52 mg intrauterine device (Mirena) levonorgestrel 21 mcg/24 hours (8 1 device intrauterine ONCE 06/01/23 06/01/23 yrs) 52 mg intrauterine device (Mirena) Allergies Allergy/AdvReac Type Severity Reaction Status Date / Time No Known Allergies Allergy Verified 06/01/23 11:18 Review of Systems Review of Systems: All systems reviewed & are unremarkable except as noted in HPI and below PMFSH Past Medical History Medical History Anxiety Biceps tendinopathy of right upper extremity Colon cancer screening Essential (primary) hypertension Hyperlipidemia, unspecified Hypertension Hypothyroid Hypothyroidism (acquired) Impingement syndrome of right shoulder Impingement syndrome, shoulder, left Migraine with aura, not intractable, without status migrainosus Morbid obesity with BMI of 40.0-44.9, adult Obstructive sleep apnea (adult) (pediatric) KRISTOFER (obstructive sleep apnea) CPAP Partial tear of right rotator cuff Perimenopausal Prehypertension Vaginal delivery x 2 Surgical History Surgical History H/O hernia repair (~2014) History of cholecystectomy History of dilatation and curettage (~2002) History of repair of right rotator cuff (~12/29/20) Rt, with Subacromial Decompression Previous section Family History Family History Mother Myocardial infarction Diabetes mellitus Grandparent Cancer, colon Sibling Hypertension Hypolipidemia Social History Social History Smoking status: Never smoker Second hand tobacco smoke exposure: No Alcohol intake: never Substance use: never Substance use type: does not use Lack of Transportation: No Lack of Food: Never True Current Housing: I Have Housing Concerned About Future Housing: No Difficulty Paying Gas/Electric Bills: No Difficulty Paying for Meds: No Currently Unemployed: No Education: Bachelor's Degree Difficulty w/ Childcare or Family Care: No Living arrangements: with family Gender identity (if verbalized by the patient): Female Sexual Orientation (if Verbalized by the Patient): Straight or Heterosexual Spiritual care concerns: No Exam Narrative: APPEARANCE: Well appearing, no pain, no distress, well-nourished. HEAD: normocephalic, atraumatic. EYES: PERRLA/EOMI, conjunctivae clear. NOSE: Normal no drainage EARS:TMS clear with good light reflex. THROAT: Pharynx clear, no exudate. NECK: Supple. No adenopathy, no masses
[2023-06-01 16:40] LABS: Thyroid Stimulating Hormone Reflex 0.155 uIU/mL (0.465-4.68)
[2023-06-01 16:45] LABS: Appearance Urine Clear (Clear); Bilirubin Urine Negative (Negative); Blood Urine Negative (Negative); Color Urine Yellow (Yellow); Glucose Urine UA Negative (Negative); Ketones Urine Negative (Negative); Leukocyte Esterase Ur Negative LEU/UL (Negative); Nitrate Urine Negative (Negative); Protein Urine Negative (Negative); Urobilinogen Urine 0.2 mg/dL (<2.0)
[2023-06-01 16:49] LABS: Add Urine Microscopic? NO
[2023-06-01 17:11] LABS: Free T4 Free Thyroxine Reflex 1.43 ng/dL (0.78-2.19)
[2023-06-01 17:39] LABS: NT Pro B Type Natriuretic Pept 76 pg/mL (19.9-100)
[2023-06-01 17:56] LABS: Total Triiodothyronine (T3) 1.16 NG/ML (0.97-1.69)
--- NOTE | 2023-06-01 18:14 | ADMGEN ---
This patient, Alba Phelan, was admitted to IMU Room 211-01. Patient/family oriented to hospital policies and general routines including ID bracelet, bed and alarms, visiting hours, pain management, procedures, bathroom and other care routines, personal items, smoking policy, room service/diet, and visiting hours. Information on how to activate the Rapid Response Team has been discussed. Patient/Family are encouraged to report perceived risks to care and to ask questions if they do not understand what they are told or what they should do.
[2023-06-01] MEDS: ACETAMINOPHEN 325 MG TABLET 650 MG PO (18:41)
[2023-06-01 19:01] LABS: Troponin I < 0.012 ng/mL (0.000-0.034)
--- NOTE | 2023-06-01 20:03 | ECG_ITS ---
Measurements Intervals [place] Rate: 79 P: 27 CO: 170 QRS: -16 QRSD: 112 T: 1 QT: 358 QTc: 410 Interpretive Statements SINUS RHYTHM MODERATE INTRAVENTRICULAR CONDUCTION DELAY [110+ ms QRS DURATION] NONSPECIFIC T-WAVE ABNORMALITY COMPARED TO ECG 06/01/2023 15:16:18 SINUS RHYTHM NOW PRESENT T-WAVE ABNORMALITY NOW PRESENT Electronically Signed On 06-02-2023 8:31:55 CDT by Eva Medina M.D.
--- NOTE | 2023-06-01 23:41 | PM.IMHP ---
H&P: HPI History of Present Illness Date/Time: 06/01/23 23:41 Chief Complaint: Arrhythmia Narrative: This is a 47-year-old female patient who came to the emergency room to be evaluated for knock acute onset of nausea vomiting and diarrhea. The patient stated that she had loose stools today and had a near syncopal episode. The patient was just started on amoxicillin if she was diagnosed with strep throat. The patient stated that she took a dose of antibiotics and went to lay down and when she got up she was sick to her stomach. The patient had only had 1 dose of amoxicillin. The patient has had no prior history of having atrial fibrillation. EMS was activated and the patient was found to be in AFib with RVR. The patient remained in AFib while she was in the emergency room. Her rate was controlled. She has a history of hypertension and diabetes. The patient was given IV fluids. Her white counts 10.2. Neutrophil percentage 79.2. Troponin negative x2. Her TSH is 0.28 and T4 is normal 1.43. Her urine is negative. The patient is being admitted to observation status on the date of service of 06/01/2023. Review of Systems Review of Systems: All systems reviewed & are unremarkable except as noted in HPI and below Constitutional: Constitutional: Reports as per HPI and Reports no additional constitutional complaints Eyes: Eyes: Reports as per HPI and Reports no additional eye complaints ENT: Reports system reviewed and no additional complaints, except as documented and Reports Normal hearing present Cardiovascular: Cardiovascular: Reports no additional cardiovascular complaints Respiratory: Respiratory: Reports no additional respiratory complaints and Reports no additional respiratory complaints Gastrointestinal: Gastrointestinal: Reports as per HPI and Reports no additional gastrointestinal complaints Musculoskeletal: Musculoskeletal: Reports no additional musculoskeletal complaints Integumentary/Breasts: Skin/Breast: Reports system reviewed and no additional complaints, except as docu and Reports as per HPI Neurologic: Reports system reviewed and no additional complaints, except as documented, Reports as per HPI and Reports Normal hearing present Psychiatric: Psychiatric: Reports no additional psychiatric complaints and Reports as per HPI Endocrine: Endocrine: Reports no additional endocrine complaints Hematologic/Lymphatic: Hematologic/Lymphatic: Reports no additional hematologic/lymphatic complaints Allergic/Immunologic: Allergic/Immunologic: Reports no additional allergic/immunologic complaints PMFSH Past Medical History Medical History Anxiety Biceps tendinopathy of right upper extremity Colon cancer screening Essential (primary) hypertension Hyperlipidemia, unspecified Hypertension Hypothyroid Hypothyroidism (acquired) Impingement syndrome of right shoulder Impingement syndrome, shoulder, left Migraine with aura, not intractable, without status migrainosus Morbid obesity with BMI of 40.0-44.9, adult Obstructive sleep apnea (adult) (pediatric) KRISTOFER (obstructive sleep apnea) CPAP Partial tear of right rotator cuff Perimenopausal Prehypertension Vaginal delivery x 2 Surgical History Surgical History H/O hernia repair (~2014) History of cholecystectomy History of dilatation and curettage (~2002) History of repair of right rotator cuff (~12/29/20) Rt, with Subacromial Decompression Previous section Family History Family History Mother Myocardial infarction Diabetes mellitus Grandparent Cancer, colon Sibling Hypertension Hypolipidemia Social History Social History (Updated 06/01/23 @ 23:49 by Britta Lo NP) Social History: The patient lives with her who 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 She works
[2023-06-02] VITALS (17 sets, daily range): BP systolic 105–137; BP diastolic 52–85; PULSE 64–81; RESP 16–20; TEMP 36.6–37.3; O2SAT 97–100
[2023-06-02] MEDS: ENOXAPARIN 120 MG/0.8 ML SYRINGE SUB-Q ×3 (01:34→23:54)
[2023-06-02] MEDS: ACETAMINOPHEN 325 MG TABLET 650 MG PO ×2 (04:20→21:46)
[2023-06-02 05:10] LABS: Basophils Percent Auto 0.2 % (0.2-1.2); Eosinophils Absolute Auto 0.2 K/mm3 (0-0.3); Eosinophils Percent Auto 1.9 % (0-4.4); Hematocrit 36.3 % (37.0-47.0); Hemoglobin 12.1 g/dL (12.0-15.0); Immature Granulocyte Absolute 0.04 K/mm3 (0.00-0.031); Immature Granulocyte Percent A 0.4 % (0-0.5); Lymphocytes Absolute Auto 2.74 K/mm3 (0.9-3.2); Mean Corpuscular HGB Conc 33.3 g/dl (32-36); Mean Corpuscular Hemoglobin 30.4 pg (26-34); Mean Corpuscular Volume 91.2 fl (80-100); Mean Platelet Volume 10.3 fl (7.4-10.4); Monocytes Absolute Auto 0.4 K/mm3 (0.1-0.6); Monocytes Percent Auto 4.7 % (2.6-8.5); Neutrophils Absolute Auto 5.7 K/mm3 (1.3-6.7); Neutrophils Percent Auto 62.8 % (45.5-73.1); Platelet Count Result 253 k/mm3 (150-375); Red Blood Count 3.98 M/mm3 (4.2-5.4); White Blood Count 9.1 K/mm3 (4.5-10.0)
[2023-06-02 05:20] LABS: Chloride 100 mmol/L (98-107); Lactic Acid Reflex 1.4 mmol/L (0.7-2.0)
[2023-06-02 05:22] LABS: Hemoglobin A1C 5.3 % (<5.7)
[2023-06-02 05:30] LABS: Alanine Aminotransferase 23 U/L (6-35); Albumin Level 3.7 g/dL (3.5-5.1); Alkaline Phosphatase 56 U/L (38-126); Anion Gap 7 mmol/L (8-16); Aspartate Amino Transferase 21 U/L (14-36); Bilirubin,Total 1.8 mg/dL (0.2-1.3); Blood Urea Nitrogen 10 mg/dL (7-17); CRP 1.2 mg/dL (<1.0); Calcium 8.4 mg/dL (8.4-10.2); Carbon Dioxide 30 mmol/L (22-30); Estimated CRCL calculation 111 ml/min; Estimated Glomerular Filt Rate > 60; Glucose 119 mg/dL (65-110); Potassium 3.3 mmol/L (3.4-5.0); Sodium 137 mmol/L (137-145)
--- NOTE | 2023-06-02 05:39 | PCRCNOTE ---
pt refused use of hospital unit and stated that she does not consistently use home unit
[2023-06-02] MEDS: AMOXICILLIN 500 MG CAPSULE PO ×3 (06:31→21:44)
[2023-06-02] MEDS: LEVOTHYROXINE SODIUM 125 MCG TABLET PO (06:31)
[2023-06-02 07:57] LABS: Glucose Point of Care 106 mg/dl (65-105)
[2023-06-02] MEDS: PANTOPRAZOLE SOD SESQUIHYDRATE 20 MG TAB PO (08:20)
[2023-06-02] MEDS: hydroCHLOROthiazide 12.5 MG CAPSULE PO (08:20)
[2023-06-02] MEDS: lisinopriL 10 MG TABLET PO (08:20)
--- NOTE | 2023-06-02 09:24 | PHAR ---
The patient's home med of Trintellix 10mg has been verified.
[2023-06-02] MEDS: POTASSIUM CHLORIDE 20 MEQ ER TABLET 80 MEQ PO (10:23)
[2023-06-02 11:29] LABS: Glucose Point of Care 107 mg/dl (65-105)
--- NOTE | 2023-06-02 12:16 | PM.IMPN ---
Progress Note: A&P Assessment and Plan (1) Strep pharyngitis: Code(s): J02.0 - Streptococcal pharyngitis Status: Inactive Assessment and Plan: Continue with amoxicillin. (2) A-fib: Code(s): I48.91 - Unspecified atrial fibrillation Status: Acute Assessment and Plan: The patient has converted back to sinus rhythm. Cardiology consulted. An echo has been ordered to rule out any valvular disease. (3) Hypothyroid: Code(s): E03.9 - Hypothyroidism, unspecified Status: Acute Assessment and Plan: Continue with levothyroxine. TSH low but free T4 normal (4) Hypertension: Code(s): I10 - Essential (primary) hypertension Status: Acute Assessment and Plan: Continue with lisinopril. Hold hydrochlorothiazide since patient is hypokalemic (5) KRISTOFER (obstructive sleep apnea): Code(s): G47.33 - Obstructive sleep apnea (adult) (pediatric) Status: Acute Assessment and Plan: Continue with home settings Subjective Date/time seen: 06/02/23 12:16 Interval history: Asymptomatic currently Review of Systems Review of Systems: All systems reviewed & are unremarkable except as noted in HPI and below Constitutional: Constitutional: Reports as per HPI and Reports no additional constitutional complaints Eyes: Eyes: Reports as per HPI and Reports no additional eye complaints ENT: Reports system reviewed and no additional complaints, except as documented and Reports Normal hearing present Cardiovascular: Cardiovascular: Reports no additional cardiovascular complaints Respiratory: Respiratory: Reports no additional respiratory complaints and Reports no additional respiratory complaints Gastrointestinal: Gastrointestinal: Reports as per HPI and Reports no additional gastrointestinal complaints Musculoskeletal: Musculoskeletal: Reports no additional musculoskeletal complaints Integumentary/Breasts: Skin/Breast: Reports system reviewed and no additional complaints, except as docu and Reports as per HPI Neurologic: Reports system reviewed and no additional complaints, except as documented, Reports as per HPI and Reports Normal hearing present Psychiatric: Psychiatric: Reports no additional psychiatric complaints and Reports as per HPI Endocrine: Endocrine: Reports no additional endocrine complaints Hematologic/Lymphatic: Hematologic/Lymphatic: Reports no additional hematologic/lymphatic complaints Allergic/Immunologic: Allergic/Immunologic: Reports no additional allergic/immunologic complaints Exam Const: General: cooperative, healthy appearing, comfortable, no acute distress, well developed, alert, awake, Physically active and overweight Nutritional Appearance: average body habitus and well nourished Orientation/consciousness: oriented to person, oriented to place, oriented to time and patient oriented x3 Limitations: no limitations HENMT: Head: normal to inspection, No palpable skull fracture present, normocephalic and atraumatic Ears: hearing grossly normal bilaterally and external ears normal Face/Nose/Sinus: Normal external nose present and Normal nares present Eyes: General: appearance normal, both eyes and all related structures Alignment and Position: alignment normal Periorbital: periorbital findings normal Eyelids: eyelids normal Conjunctivae: conjunctivae normal Sclera: sclerae normal Pupils: Equal, round and reactive pupils present EOM: EOMs intact bilaterally Neck: Neck: normal visual inspection, full ROM, no lymphadenopathy, trachea midline and supple Chest: Chest palpation & inspection: normal inspection of the chest Resp: Effort & Inspection: normal respiratory effort Auscultation: clear to auscultation bilaterally Cardio: Palpation: normal PMI Rate: regular rate Rhythm: regular rhythm Heart sounds: S1 normal heart sound present and S2 normal heart sound present Peripheral pulses: Peripheral pulses 2+ throughout Other:
--- NOTE | 2023-06-02 12:47 | PM.CNCAR ---
Assessment and Plan Assessment and plan (1) A-fib: Code(s): I48.91 - Unspecified atrial fibrillation Status: Acute Assessment and Plan: Patient was admitted with new onset AFib RVR, has converted to sinus rhythm. Likely related to her acute illness and risk factors (family history of PAF, obesity and sleep apnea, hypertension). Her TSH was also low so her levothyroxine dose may be a too little high for her. Apparently she had a similar episode about 4 years ago which resolved prior to EMS arrival; blamed on being a panic attack. Wonder she may have had an episode of SVT or AFib? --echocardiogram --apnea link --consider lowering the dose of levothyroxine --metoprolol 25 mg p.o. p.r.n. for palpitations --CHADS 2 Vasc score is 2; no anticoagulation recommended. Aspirin 81 mg daily. --consider obtaining a Smart Watch or an Apple watch that can screen for paroxysmal atrial fibrillation. --discussed Valsalva maneuver which may be helpful if she has episodes of PSVT at home. --counseled patient has been about atrial fibrillation. Since she has had 1 episode and has risk factor she may have other episodes but hopefully not for long time. We will step up therapy by adding metoprolol or diltiazem if she has further episodes. --Discharge Saturday? (2) Strep throat: Code(s): J02.0 - Streptococcal pharyngitis Status: Acute Assessment and Plan: Acute strep pharyngitis, now on amoxicillin (3) Near syncope: Code(s): R55 - Syncope and collapse Status: Acute Assessment and Plan: Near syncope as a result of AFib RVR, and acute illness --up in chair, check orthostatics (4) KRISTOFER (obstructive sleep apnea): Code(s): G47.33 - Obstructive sleep apnea (adult) (pediatric) Status: Acute Assessment and Plan: History of sleep apnea previously on CPAP. Apparently fever symptoms and sign since she has lost weight. Can be a risk factor for PAF however. --Apnea Link tonight. (5) Family history of atrial fibrillation: Code(s): Z82.49 - Family history of ischemic heart disease and other diseases of the circulatory system Status: Acute Assessment and Plan: Mother and grandmother have atrial fibrillation so they may be a familial component. History of Present Illness History of Present Illness Consult date/time: 06/02/23 12:47 Reason For Visit: a fib,strep throat Narrative: Alba Shore a 47-year-old female whom we are asked to see at the request of CONVEYOR WORKER Britta Lo, for my advice and opinion regarding her new onset of AFib in consultation. The patient has a history of hypertension, diabetes, and class 3 obesity. The patient was found to have strep throat this morning. She took a dose of amoxicillin and lay down, later had nausea, vomiting, and felt like she needed to go to the bathroom. Her helped her up to the bathroom and she had a near syncopal event and loss of bowel and bladder control. No seizure activity. He called EMS and was she found to be in AFib RVR. Apparently her blood pressure was about 180/110 mmHg. In the emergency room heart rate was in the 80s, BP 118/76 and she has not required any specific treatment. She was placed on Lovenox. She converted to sinus rhythm around 8:00 a.m. this morning. About 4 years ago she had an episode of fast heart beats and called the ambulance but on their arrival she was in normal rhythm. She does take thyroid medicine. She has a history of sleep apnea but is not consistent with CPAP. She has lost a lot of weight over the past year and her says he has not noted any apneic episodes. No alcohol use. Both her mother and grandmother have atrial fibrillation. No history of any exertional chest pressure, pain or HUMPHREY. TSH low at 0.155, but free T4 and total T3 were normal. ProBNP was 76. Troponin negative x2 06/01/2023 EKG at 3:16 p.m.: AFib rate 81, nonspecific ST-T changes. 06/01/2023 EKG at 8
--- NOTE | 2023-06-02 13:41 | PHAR ---
CALLED DR. MURRAY TO QUESTION METOPROLOL TARTRATE 25MG Q2H PRN ORDER. SHE VERIFIED THAT SHE WANTED THAT DOSE EVERY 2 HOURS NEEDED AND THAT I COULD ADD FOR HEART RATE > 120
[2023-06-02 17:01] LABS: Glucose Point of Care 85 mg/dl (65-105)
[2023-06-02 20:25] LABS: Glucose Point of Care 82 mg/dl (65-105)
[2023-06-03] VITALS (8 sets, daily range): BP systolic 123–127; BP diastolic 83–89; PULSE 63–98; RESP 18–20; TEMP 36.4–37.1; O2SAT 97–99
[2023-06-03] MEDS: LEVOTHYROXINE SODIUM 125 MCG TABLET PO (06:14)
[2023-06-03] MEDS: AMOXICILLIN 500 MG CAPSULE PO (06:14)
[2023-06-03 07:38] LABS: Glucose Point of Care 90 mg/dl (65-105)
--- NOTE | 2023-06-03 08:00 | ECHO_ITS ---
Patient Info Name: Alba Phelan Age: 47 years : 1975 Gender: Female Ht: 64 in Wt: 266 lbs BSA: 2.40 m2 HR: 76 bpm BP: 127 / 83 mmHg Heart Rhythm: Sinus Rhythm Technical Quality: Fair Exam Date: 06/03/2023 8:56 AM Exam Location: [facility] Card Pulmonary Patient Status: Inpatient Admit Date: 06/01/2023 Staff Ordering Physician: Eva Medina MD Peanut Sorter: Alana Aguilar RDCS Attending Provider: Tio Bajwa MD Referring Physician: Carol KOHLER; Exam Type: CA echo dop color flow w con Study Info Indications - NEW AFIB Complete two-dimensional, color flow and Doppler transthoracic echocardiogram is performed with contrast to opacify the left ventricle and to improve the deliniation of the left ventricle endocardial borders. Contrast/Agitated Saline Contrast/Ag. Saline: Definity Amount: 2.00 ml Administered By: Alana Aguilar RDCS Existing IV Access: Yes IV Access Condition: patent with no signs of infiltration Summary 1. Left ventricular chamber dimension is normal. 2. Left ventricular systolic function is normal, estimated at 65-70%. 3. There is mildly increased left ventricular wall thickness. 4. The left ventricular diastolic function is grade I diastolic dysfunction. 5. Left atrial chamber dimension is mildly enlarged. 6. There is mild mitral valve regurgitation. 7. There is mild tricuspid valve regurgitation. 8. Moderate pulmonary hypertension, estimated pulmonary arterial systolic pressure is 48 mmHg. Left Ventricle Left ventricular chamber dimension is normal. Left ventricular systolic function is normal, estimated at 65-70%. There is mildly increased left ventricular wall thickness. The left ventricular diastolic function is grade I diastolic dysfunction. Right Ventricle Right ventricular chamber dimension is normal. Right ventricular systolic function is normal. Left Atria Left atrial chamber dimension is mildly enlarged. Right Atria Right atrial chamber dimension is normal. Atrial Septum Intact interatrial septum visualized by color flow imaging. Aortic Valve The aortic valve is trileaflet. There is no aortic valve sclerosis. There is no aortic valve stenosis. There is trace aortic valve regurgitation. Pulmonic Valve The pulmonic valve is normal. There is no pulmonic valve stenosis. There is trace pulmonic regurgitation. Mitral Valve The mitral valve has normal leaflets. There is no mitral valve stenosis. There is mild mitral valve regurgitation. Tricuspid Valve The tricuspid valve leaflets are normal. There is no significant tricuspid valve stenosis. There is mild tricuspid valve regurgitation. Moderate pulmonary hypertension, estimated pulmonary arterial systolic pressure is 48 mmHg. Pericardium/Pleural The pericardium appears normal. There is no pericardial effusion. Inferior Vena Cava Dilated inferior vena cava with >50% collapse upon inspiration consistent with elevated right atrial pressure, 10 mmHg. Aorta The aortic root size at the sinus of Valsalva is normal. Left Ventricular Outflow Tract Name Value Normal LVOT 2D LVOT Diameter 2.02 cm LVOT Doppler LVOT Peak Gra
[2023-06-03] MEDS: lisinopriL 10 MG TABLET PO (08:04)
[2023-06-03] MEDS: PANTOPRAZOLE SOD SESQUIHYDRATE 20 MG TAB PO (08:04)
[2023-06-03] MEDS: ASPIRIN 81 MG CHEWABLE TABLET PO (08:04)
[2023-06-03 09:04] LABS: Anion Gap 2 mmol/L (8-16); Blood Urea Nitrogen 10 mg/dL (7-17); Calcium 8.6 mg/dL (8.4-10.2); Carbon Dioxide 30 mmol/L (22-30); Chloride 101 mmol/L (98-107); Estimated CRCL calculation 111 ml/min; Estimated Glomerular Filt Rate > 60; Glucose 134 mg/dL (65-110); Magnesium 1.9 mg/dL (1.6-2.3); Potassium 3.7 mmol/L (3.4-5.0); Sodium 133 mmol/L (137-145)
[2023-06-03] MEDS: PERFLUTREN LIPID MICROSPHERES 1.5 ML VIAL DILUTED TO 10 ML TOTAL VOLUME IV PUSH (09:32)
--- NOTE | 2023-06-03 09:48 | PM.PNCARD ---
Progress Note: A&P Assessment and Plan (1) A-fib: Code(s): I48.91 - Unspecified atrial fibrillation Status: Acute Assessment and Plan: Patient was admitted with new onset AFib RVR, has converted to sinus rhythm. Likely related to her acute illness and risk factors (family history of PAF, obesity and sleep apnea, hypertension). Her TSH was also low so her levothyroxine dose may be a too little high for her. Apparently she had a similar episode about 4 years ago which resolved prior to EMS arrival; blamed on being a panic attack. Wonder she may have had an episode of SVT or AFib? --echocardiogram --apnea link --consider lowering the dose of levothyroxine --metoprolol 25 mg p.o. p.r.n. for palpitations --CHADS 2 Vasc score is 3 in my opinion including gender, high blood pressure and diabetes anticoagulation is recommended. Will discontinue aspirin start on Xarelto 20 mg daily. This may be only for a short term. Would consider implanting a loop recorder as an outpatient --consider obtaining a Smart Watch or an Apple watch that can screen for paroxysmal atrial fibrillation. --discussed Valsalva maneuver which may be helpful if she has episodes of PSVT at home. --counseled patient has been about atrial fibrillation. Since she has had 1 episode and has risk factor she may have other episodes but hopefully not for long time. We will step up therapy by adding metoprolol or diltiazem if she has further episodes. Discharge today after echo reviewed (2) Strep throat: Code(s): J02.0 - Streptococcal pharyngitis Status: Acute Assessment and Plan: Acute strep pharyngitis, now on amoxicillin (3) Near syncope: Code(s): R55 - Syncope and collapse Status: Acute Assessment and Plan: Near syncope as a result of AFib RVR, and acute illness --up in chair, check orthostatics (4) KRISTOFER (obstructive sleep apnea): Code(s): G47.33 - Obstructive sleep apnea (adult) (pediatric) Status: Acute Assessment and Plan: History of sleep apnea previously on CPAP. Apparently fever symptoms and sign since she has lost weight. Can be a risk factor for PAF however. --Apnea Link tonight. (5) Family history of atrial fibrillation: Code(s): Z82.49 - Family history of ischemic heart disease and other diseases of the circulatory system Status: Acute Assessment and Plan: Mother and grandmother have atrial fibrillation so they may be a familial component. Subjective Date/time seen: 06/03/23 09:48 Interval history: 47-year-old admitted with atrial fibrillation. Recent strep throat treatment. Date of service 06/03/2023: Feels tired but otherwise okay without chest pain, shortness breath, palpitations. Review of Systems Constitutional: Constitutional: Denies fever(s) Eyes: Eyes: Reports blurry vision (Wears glasses) ENT: Denies epistaxis Cardiovascular: Cardiovascular: Denies chest pain, Denies pedal edema, Denies lightheadedness, Reports palpitations and Denies dyspnea Respiratory: Respiratory: Denies chest congestion and Denies dyspnea Gastrointestinal: Gastrointestinal: Denies abdominal pain and Denies hematochezia Genitourinary: Genitourinary: Reports no additional female genitourinary complaints Integumentary/Breasts: Skin/Breast: Reports system reviewed and no additional complaints, except as docu Neurologic: Reports system reviewed and no additional complaints, except as documented, Denies behavioral changes and Denies confusion Psychiatric: Psychiatric: Denies behavioral changes and Denies confusion Endocrine: Endocrine: Reports palpitations Exam Const: General: cooperative, healthy appearing and comfortable; No confusion Orientation/consciousness: oriented to person, patient oriented x3 and No confusion Other: Has been at the bedside. Patient is tearful at times; she thought she was going to when this happened. HENMT: Mouth: Yes
--- NOTE | 2023-06-03 10:34 | PM.DS ---
DS: Admitting Diagnosis Discharge Date 06/03/23 Admitting Diagnosis A. fib with RVR DS: Discharge Diagnosis Discharge Diagnosis (1) A-fib: Code(s): I48.91 - Unspecified atrial fibrillation Status: Acute (2) Hypothyroid: Code(s): E03.9 - Hypothyroidism, unspecified Status: Acute (3) Hypertension: Code(s): I10 - Essential (primary) hypertension Status: Acute DS: Summary Hospital Course Hospital Course: Patient was admitted with new onset AFib RVR, has converted to sinus rhythm.? Likely related to her acute illness and risk factors (family history of PAF, obesity and sleep apnea, hypertension).? Wonder she may have had an episode of SVT or AFib? Cardiology consulted. echocardiogram obtained. Cardiology will review the echocardiogram. TSH low but free T4 normal. Continue same dose of levothyroxine. Continue metoprolol 25 mg p.o. p.r.n. for palpitations. CHADS 2 Vasc score is 3 including gender, high blood pressure and diabetes anticoagulation is recommended.? Will discontinue aspirin start on Xarelto 20 mg daily.? This may be only for a short term.? Would consider implanting a loop recorder as an outpatient. Discharge today after echo reviewed Time Spent with Patient Time attestation: Total time spent providing and/or coordinating discharge services: DS: Data Data Completed and Pending Labs on day of discharge: Labs from last 24 hours 06/03/23 06/03/23 06/02/23 08:48 07:32 19:57 Sodium 133 L Potassium 3.7 Chloride 101 Carbon Dioxide 30 Anion Gap 2 L BUN 10 Creatinine 0.70 Estim Creat Clear Calc 111 Estimated GFR > 60 Glucose 134 H POC Capillary Glucose 90 82 Calcium 8.6 Magnesium 1.9 06/02/23 06/02/23 15:53 11:20 Sodium Potassium Chloride Carbon Dioxide Anion Gap BUN Creatinine Estim Creat Clear Calc Estimated GFR Glucose POC Capillary Glucose 85 107 H Calcium Magnesium Discharge Plan Discharge Consulting providers: Eva Medina Discharging Clinician: Tio Bajwa Anticipated Discharge Date/Time: 06/03/23 10:33 Patient Disposition: Home, Self-Care Activity: no preference Diet: heart healthy and diabetic Patient Instructions: Antibiotic Form Stand Alone Forms: General Discharge Information Follow-up/Referrals: [place] Acosta MD [Primary Care Provider[facility] - Discharge Medications: New metoprolol tartrate 25 mg Tablet 25 mg PO Q2H PRN (Reason: for fast heart beats) Qty: 30 0RF Xarelto 20 mg Tablet 20 mg PO DAILY@1700 Qty: 30 0RF lisinopril 10 mg Tablet 10 mg PO DAILY Qty: 30 0RF Continued Mirena 21 mcg/24 hours (8 yrs) 52 mg intrauterine device 1 device I-UTERINE ONCE Rx Instructions: Inserted in 2018 Ozempic 1 mg/dose (4 mg/3 mL) pen injector 1 mg subcut WEEKLY Qty: 9 3RF Rx Instructions: saturdays eletriptan [Relpax] 40 mg tablet 40 mg PO ONCE PRN (Reason: migraine headache) Qty: 30 3RF omeprazole 10 mg capsule,delayed release(DR/EC) 10 mg PO DAILY ondansetron HCl 4 mg tablet 4 mg PO Q6H PRN (Reason: Nausea) levothyroxine [Synthroid] 125 mcg tablet 125 mcg PO DAILY Qty: 90 3RF metformin 500 mg tablet extended release 24 hr 500 mg PO BID Qty: 180 1RF Rx Instructions: take with meals Trintellix 10 mg tablet 10 mg PO DAILY Qty: 90 1RF Rx Instructions: TAKE 1 TABLET BY MOUTH DAILY Discontinued amoxicillin 875 mg tablet 875 mg PO Q12H 10 Days Qty: 20 0RF lisinopril-hydrochlorothiazide 10-12.5 mg tablet 1 tablet PO DAILY Qty: 90 3RF Date of admission: 06/01/23 16:47 Primary Care Provider: Montana Acosta Admitting Provider: Tio Bajwa Attending physician on admission: Tio Bajwa Condition: Stable
[2023-06-03] MEDS: POTASSIUM CHLORIDE 20 MEQ PACKET (FOR LIQUID) 40 MEQ PO (10:51)
== END 2023-06-03 12:12 | disposition home or self-care (01) ==
LOC: ANHED 16:04 → ANHIMU 17:26
PROVIDERS: Nurse Practitioner; Admitting Provider Hospitalist; Emergency Provider Emergency Medicine; PCP Family Medicine; Visit Provider Hospitalist
DX: I48.91 Unspecified atrial fibrillation (principal); J02.0 Streptococcal pharyngitis; R11.2 Nausea with vomiting, unspecified; R15.9 Full incontinence of feces; R55 Syncope and collapse; I11.9 Hypertensive heart disease without heart failure; E11.65 Type 2 diabetes mellitus with hyperglycemia; Z97.5 Presence of (intrauterine) contraceptive device; E03.9 Hypothyroidism, unspecified; I08.1 Rheumatic disorders of both mitral and tricuspid valves; I27.20 Pulmonary hypertension, unspecified; E78.5 Hyperlipidemia, unspecified; E80.7 Disorder of bilirubin metabolism, unspecified; G47.33 Obstructive sleep apnea (adult) (pediatric); R60.0 Localized edema; R51.9 Headache, unspecified; Z99.89 Dependence on other enabling machines and devices; R94.31 Abnormal electrocardiogram [ECG] [EKG]; R79.81 Abnormal blood-gas level; E66.01 Morbid (severe) obesity due to excess calories; Z68.42 Body mass index [BMI] 45.0-49.9, adult; Z79.85 Long-term (current) use of injectable non-insulin antidiabetic drugs; Z79.899 Other long term (current) drug therapy; Z82.49 Family history of ischemic heart disease and other diseases of the circulatory system; Z83.3 Family history of diabetes mellitus
CPT/HCPCS: 36415; 71045; 71275; 80048; 80053; 81003; 82948; 83036; 83605; 83735; 83880; 84439; 84443; 84480; 84484; 85025; 85610; 85730; 86140; 93005; 93970; 96360; 96361; 96372; 96374; 99285; A9270; C8929; G0378; J1650; J7030; Q9957; Q9967

== ENCOUNTER 2024-04-11 11:31 | Emergency (ER) | payer BC, SELFPAY ==
[2024-04-11 11:42] VITALS: BP 139/88; PULSE 92; RESP 16; TEMP 36.5; O2SAT 92
--- NOTE | 2024-04-11 11:42 | ED.URI ---
HPI - URI/Sore Throat General Chief Complaint: Upper Respiratory Infection Stated Complaint: deep cough,ear and head hurts Source: patient and RN notes reviewed Mode of arrival: ambulatory Limitations: no limitations History of Present Illness HPI Narrative: 48 y/o female presented for c/o frequent nonproductive cough. Onset 1 week. Cough is described as harsh, worse laying down. Also reports about 2 days of right ear pain and watery eyes. Denies sob, wheezing, n/v/d/f/c. Taking zyrtec dAustin DUARTE elicited complaint: cough Related Data Home Medications Medication Instructions Recorded Confirmed omeprazole 10 mg capsule,delayed 10 mg PO DAILY 06/30/20 04/11/24 release levonorgestrel 21 mcg/24 hr (up to 1 device intrauterine ONCE 04/08/23 04/11/24 8 years) 52 mg intrauterine device (Mirena) ondansetron HCl 4 mg tablet 4 mg PO Q6H PRN Nausea 06/01/23 04/11/24 Allergies Allergy/AdvReac Type Severity Reaction Status Date / Time No Known Allergies Allergy Verified 04/11/24 11:38 Review of Systems Review of Systems: CONSTITUTIONAL: Denies malaise, chills, sweats, fever EYES: Denies visual changes, redness, or discharge ENT: Denies rhinorrhea, congestion, sinus pain, sore throat reports right ear pain CARDIOVASCULAR: Denies chest pain, palpitations, edema RESPIRATORY: Reports cough, Denies dyspnea GASTROINTESTINAL: Denies abdominal pain, nausea, vomiting, diarrhea SKIN: Denies rash or itching MUSCULOSKELETAL: Denies myalgia NEUROLOGIC: Denies headache All systems reviewed & are unremarkable except as noted in HPI and below PMFSH Past Medical History Medical History A-fib Acute meniscal tear of left knee Anxiety Biceps tendinopathy of right upper extremity Essential (primary) hypertension Hyperlipidemia, unspecified Hypertension Hypothyroid Hypothyroidism (acquired) Impingement syndrome of right shoulder Impingement syndrome, shoulder, left Low back pain Migraine with aura, not intractable, without status migrainosus Morbid obesity with BMI of 40.0-44.9, adult Obstructive sleep apnea (adult) (pediatric) KRISTOFER (obstructive sleep apnea) CPAP Partial tear of right rotator cuff Pelvic pain Perimenopausal Prehypertension Superficial phlebitis and thrombophlebitis of left leg Vaginal delivery x 2 Varicose vein of leg Surgical History Surgical History H/O hernia repair (~2014) History of cholecystectomy History of dilatation and curettage (~2002) History of repair of right rotator cuff (~12/29/20) Rt, with Subacromial Decompression Previous section Status post right rotator cuff repair Family History Family History Mother Myocardial infarction Diabetes mellitus Atrial fibrillation Grandparent Cancer, colon Sibling Hypertension Hypolipidemia Grandparent Atrial fibrillation Social History Social History Social History: The patient lives with her who is the durable power workers compensation attorney for healthcare. She works for [employer]. She has 4 children. She is a lifelong nonsmoker. She does not use any alcohol marijuana or illicit drugs. Code status full Smoking status: Never smoker Second hand tobacco smoke exposure: No Alcohol intake: never Substance use: never Substance use type: does not use Do You Feel Safe in your Home?: Yes Lack of Transportation: No Lack of Food: Never True Current Housing: I Have Housing Concerned About Future Housing: No Difficulty Paying Gas/Electric Bills: No Difficulty Paying for Meds: No Currently Unemployed: No Education: Bachelor's Degree Difficulty w/ Childcare or Family Care: No Living arrangements: with family Gender identity (if verbalized by the patient): Female Sexual Orientation (if
== END 2024-04-11 12:09 | disposition home or self-care (01) ==
PROVIDERS: Emergency Provider Nurse Practitioner Family; PCP Family Medicine
DX: J40 Bronchitis, not specified as acute or chronic (principal); I48.91 Unspecified atrial fibrillation; I10 Essential (primary) hypertension; E78.5 Hyperlipidemia, unspecified; E03.9 Hypothyroidism, unspecified; E66.01 Morbid (severe) obesity due to excess calories; Z68.41 Body mass index [BMI] 40.0-44.9, adult; G47.33 Obstructive sleep apnea (adult) (pediatric)
CPT/HCPCS: 99213; G0463

== ENCOUNTER 2024-09-15 07:50 | Outpatient (CLI) | payer BC, SELFPAY ==
--- NOTE | ~2024-09-15 | MM_ITS ---
EXAMINATION: MM screening [place] BI w kameron HISTORY: Screening mammogram, family history of breast cancer in her sister. TECHNIQUE: Craniocaudal and mediolateral oblique 3-D tomosynthesis images were obtained and synthetic 2-D images were generated. CAD analysis was submitted and interpreted. COMPARISON: 10/26/2021, 12/25/2017 BREAST PARENCHYMAL COMPOSITION:Not Dense. There are scattered areas of fibroglandular density. FINDINGS: No suspicious mass, calcification, or architectural distortion are identified in either champ ast to suggest malignancy. There has been no suspicious interval change. IMPRESSION: No mammographic evidence of malignancy. Recommend routine screening mammography in one year. BI-RADS Category 1: Negative Reviewed, dictated and finalized at location . OUT NANNY
== END 2024-09-15 07:51 | disposition home or self-care (01) ==
LOC: ANHIMG 07:51
PROVIDERS: PCP Family Medicine; Visit Provider Obstetrics & Gynecology
DX: Z12.31 Encounter for screening mammogram for malignant neoplasm of breast (principal)
CPT/HCPCS: 77063; 77067

== ENCOUNTER 2024-09-16 07:58 | Outpatient (CLI) | payer BC, SELFPAY ==
--- NOTE | ~2024-09-16 | XR_ITS ---
XR knee LT min 4V Ordering provider: Roque Quiñones MD History: . No injury left knee pain . Comparison: None. FINDINGS: BONES: No acute fracture or dislocation. JOINT SPACES: Moderate Narrowing of the medial compartment. SOFT TISSUES: Normal. IMPRESSION: No acute osseous abnormality left knee. Mild to moderate osteoarthritic changes. Reviewed, dictated and finalized at location A. SSIONS RN
== END 2024-09-16 07:59 | disposition home or self-care (01) ==
LOC: GOSHIMG 07:59
PROVIDERS: PCP Orthopaedic Surgery; Visit Provider Orthopaedic Surgery
DX: M17.12 Unilateral primary osteoarthritis, left knee (principal)
CPT/HCPCS: 73564

== ENCOUNTER 2024-12-14 09:06 | Emergency (ER) | payer BC, SELFPAY ==
[2024-12-14 09:12] VITALS: BP 123/79; PULSE 71; RESP 20; TEMP 36.9; O2SAT 100
--- NOTE | 2024-12-14 09:55 | ED.EAR ---
HPI - Ear Problem General Chief complaint: Ear Stated complaint: Ear Pain Time Seen by Provider: 12/14/24 09:45 Source: patient, RN notes reviewed and old records reviewed Mode of arrival: ambulatory Limitations: no limitations History of Present Illness HPI Narrative: 49 year old female presents to [facility] care with complaints of having URI possible flu last week and yesterday feeling off and having right ear pain and some nausea.. Patient reports no drainage from her right ear, states hearing is muffled in the right ear. Patient reports that she has been taking Tylenol for her symptoms. MD Complaint: ear pain and other (some nausea) Location: right ear Severity: moderate Discharge from ear: Reports no Treatment prior to arrival: other (Tylenol) Related Data Home Medications ?Medication ?Instructions ?Recorded ?Confirmed ?Last Taken ?Type omeprazole 10 mg capsule,delayed 10 mg PO DAILY 06/30/20 09/30/24 06/01/23 12:00 History release levonorgestrel (Mirena) 1 device intrauterine ONCE 04/08/23 09/30/24 Unknown History ondansetron HCl 4 mg tablet 4 mg PO Q6H PRN Nausea 06/01/23 09/30/24 Unknown History cholecalciferol (vitamin D3) 50 50 mcg PO DAILY 08/04/24 09/30/24 Unknown History mcg (2,000 unit) capsule Allergies Allergy/AdvReac Type Severity Reaction Status Date / Time No Known Allergies Allergy Verified 09/30/24 10:41 Review of Systems Review of Systems: CONSTITUTIONAL: Denies malaise, chills, sweats, or fever. EYES: Denies visual changes, redness, or discharge. ENT: Reports rhinorrhea, congestion, no sinus pain, right otalgia and no sore throat. CARDIOVASCULAR: Denies chest pain, palpitations, or edema. RESPIRATORY: Reports occasional cough.? Denies dyspnea. GASTROINTESTINAL: Denies abdominal pain, some nausea,no vomiting, no diarrhea SKIN: Denies rash or itching. MUSCULOSKELETAL: Denies myalgia. NEUROLOGIC: Denies headache. All systems reviewed & are unremarkable except as noted in HPI and below PMFSH Past Medical History Medical History A-fib Low back pain Superficial phlebitis and thrombophlebitis of left leg Pelvic pain Impingement syndrome, shoulder, left Acute meniscal tear of left knee Varicose vein of leg Partial tear of right rotator cuff Impingement syndrome of right shoulder Biceps tendinopathy of right upper extremity Morbid obesity with BMI of 40.0-44.9, adult Essential (primary) hypertension Hyperlipidemia, unspecified Hypothyroidism (acquired) Migraine with aura, not intractable, without status migrainosus KRISTOFER (obstructive sleep apnea) CPAP Obstructive sleep apnea (adult) (pediatric) Perimenopausal Prehypertension Vaginal delivery x 2 Anxiety Hypertension Hypothyroid Surgical History Surgical History Status post phlebectomy Status post right rotator cuff repair History of repair of right rotator cuff (~12/29/20) Rt, with Subacromial Decompression History of dilatation and curettage (~2002) H/O hernia repair (~2014) Previous section History of cholecystectomy Family History Family History Mother Myocardial infarction Diabetes mellitus Atrial fibrillation Grandparent Cancer, colon Sibling Hypertension Hypolipidemia Grandparent Atrial fibrillation Social History Social History Social History: The patient lives with her who is the durable power admitted attorneys for healthcare. She works for [employer]. She has 4 children. She is a lifelong nonsmoker. She does not use any alcohol marijuana or illicit drugs. Code status full Smoking status: Never smoker Second hand tobacco smoke exposure: No Alcohol intake: never Substance use: never Substance use type: does not use Do You Feel Safe in your Home?: Yes Lack of Transportation: No Lack of Food: Never True Current Housing: I Have Housing Concerned About Future Housing: No Difficulty Paying Gas/Electric Bills: No Difficulty Paying for Meds: No Currently Unemployed: No Education: Bachelor's Degree Difficulty w/ Childcare or Family Care: No Living arrangements: with family Gender identity (if verbalized by the patient): Female Sexual Orientation (if Verbalized by the Patient): Straight or Heterosexual Spiritual care concerns: No Comments At time of signature, agree with nursing past medical, surgical, social and family history. There is no relevant family history pertinent to the presenting complaint Exam Narrative: GENERAL: Well-appearing, well-nourished, and in no acute distress. HEAD: Normocephalic EYES: PERRLA, conjunctivae clear ENT: Nares clear, turbinates edematous and erythematous, clear discharge. Mucous membranes moist.Right TM red Left TM pearly mcfarland with dull light reflex bilaterally; no tragal tenderness. Oropharynx erythematous without lesions. Tonsils not enlarged and without exudate, no drooling, no hoarseness, no trismus, uvula midline.post nasal drainage noted NECK: Supple. No lymphadenopathy CHEST: Clear to auscultation, breath sounds equal. No wheezing, rhonchi, rales, or stridor. No respiratory distress, speaks in full sentences. no acute cough SAO2 HEART: Regular rate and rhythm. No murmur heard. 100% on room air SKIN: Warm, dry, no rash. NEURO: Alert and oriented x3. PSYCH: Normal mood and affect Course Course Emergency Course: Patient is aware of diagnosis, understands and agrees to treatment plan.? Anticipatory guidance given.? Patient agrees to follow-up as directed and is aware of reasons to seek care at the emergency department. Portions of this record may have been created with voice recognition software Level of Care: Express Care Visit Vital Signs Vital signs: Vital Signs Temperature 36.9 C 12/14/24 09:12 Pulse Rate 71 12/14/24 09:12 Respiratory Rate 12/14/24 09:12 Blood Pressure 123/79 12/14/24 09:12 Pulse Oximetry 100 12/14/24 09:12 Oxygen Delivery Room Air 12/14/24 09:12 Temperature 36.9 C 12/14/24 09:12 Pulse Rate 71 12/14/24 09:12 Respiratory Rate 20 12/14/24 09:12 Blood Pressure 123/79 12/14/24 09:12 Pulse Oximetry 100 12/14/24 09:12 Oxygen Delivery Room Air 12/14/24 09:12 Reviewed Medical Decision Making Differential Diagnosis Differential Diagnosis: URI, otitis media, nausea, viral infection Medical Records Medical records reviewed: Yes I reviewed the external patient's medical records. Vital Signs Vital Signs: Vital Signs Temperature 36.9 C 12/14/24 09:12 Pulse Rate 71 12/14/24 09:12 Respiratory Rate 20 12/14/24 09:12 Blood Pressure 123/79 12/14/24 09:12 Pulse Oximetry 100 12/14/24 09:12 Oxygen Delivery Room Air 12/14/24 09:12 Temperature 36.9 C 12/14/24 09:12 Pulse Rate 71 12/14/24 09:12 Respiratory Rate 20 12/14/24 09:12 Blood Pressure 123/79 12/14/24 09:12 Pulse Oximetry 100 12/14/24 09:12 Oxygen Delivery Room Air 12/14/24 09:12 reviewed Critical Care Time Critical Care Time Critical Care Time: No Discharge Plan Discharge Clinical Impression: Otitis media Qualifiers: Otitis media type: serous Chronicity: acute Laterality: right Recurrence: not specified as recurrent Qualified Code(s): H65.01 - Acute serous otitis media, right ear Patient Disposition: Home, Self-Care Condition: Stable Instructions: Antibiotic Form, Ear Infection (GEN) Additional Instructions: Increase fluids especially juices and water Ofor-vmk-[id number] cough and cold medicine of your choice for your symptoms Zyrtec, Claritin or Camille daily and include Coricidin decongestant heat to the face 20-30 minutes 4-6 times a day for pain Salt water gargles, throat lozenges or throat sprays as desired Antibiotic as directed--finished the medication If your symptoms persist, change or worsen significantly before you can contact your personal physician then please, without delay, go to the emergency department for further evaluation. Follow-up with PCP in 7-10 days or sooner if needed Patient Language: Telugu Prescriptions: New amoxicillin-pot clavulanate 875-125 mg tablet 1 tablet PO Q12H Qty: 20 0RF Rx Instructions: take with probiotic or eat activa yogurt while taking No Action Mirena 21 mcg/24 hours (8 yrs) 52 mg intrauterine device 1 device I-UTERINE ONCE Rx Instructions: Inserted in 2019 eletriptan [Relpax] 40 mg tablet 40 mg PO ONCE PRN (Reason: migraine headache) Qty: 30 3RF nystatin 100,000 unit/gram powder 1 applic topical BID Qty: 15 0RF Ozempic 2 mg/dose (8 mg/3 mL) pen injector 2 mg subcut WEEKLY Qty: 9 3RF levothyroxine [Synthroid] 100 mcg tablet 100 mcg PO DAILY Qty: 90 2RF omeprazole 10 mg capsule,delayed release(DR/EC) 10 mg PO DAILY ondansetron HCl 4 mg tablet 4 mg PO Q6H PRN (Reason: Nausea) metoprolol tartrate 25 mg Tablet 25 mg PO Q2H PRN (Reason: for fast heart beats) Qty: 30 0RF Xarelto 20 mg tablet 20 mg PO DAILY@1700 Qty: 90 3RF metformin 500 mg tablet extended release 24 hr 500 mg PO BID Qty: 180 1RF Rx Instructions: take with meals lisinopril 10 mg tablet 10 mg PO DAILY Qty: 90 3RF Trintellix 10 mg tablet 10 mg PO DAILY Qty: 90 1RF Rx Instructions: TAKE 1 TABLET BY MOUTH DAILY cholecalciferol (vitamin D3) 50 mcg (2,000 unit) capsule 50 mcg PO DAILY Follow-up/Referrals: Montana Acosta MD [Primary Care Provider] - Time of Disposition: 10:09 Quality [place] Coma Scale Eyes: Open Verbal: Oriented and Alert Motor: Follows Commands Cesar Coma Total Score: 15
--- OUTSIDE RECORDS SUMMARY | 2024-12-14 11:48 | XMS_ITS | Clinical Summary ---
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 Gender Identity Not on file Sexual Orientation Not on file Plan of Treatment Health Maintenance Due Date Last Done Comments DTAP/TDAP/TD VACCINES (1 - Tdap) 1995 HEPATITIS B VACCINES (1 of 3 - 19+ 3-dose series) 10/29 CERVICAL CANCER SCREENING 2006 BREAST CANCER SCREENING 2016 COLORECTAL SCREENING 2021 Colorectal Cancer Screening 2021 FIT-DNA Q 3 years 2021 FIT/FOBT Q 1 year 2021 Flex Sig/CT Colonography Q 5 years 2021 INFLUENZA VACCINE (#1) 2024 Insurance [facility] [id number] Care Teams Paper Inserter Relationship Specialty Start Date End Date Nuno Smith MD PCP - General Family Practice 11/10/12
--- OUTSIDE RECORDS SUMMARY | 2024-12-14 11:49 | XMS_ITS | Clinical Summary ---
Author Organization [address] Address [facility] [place] [address] Care Team Providers Care Anchor Tack Puller Name Role Phone Montana Acosta MD Primary Care Provider [phone] Allergies No known active allergies Medications lisinopriL (PRINIVIL,ZESTR IL) 10 mg tablet Take 1 tablet (10 mg total) by mouth daily 3 Active Trintellix 10 mg tablet Take 1 tablet (10 mg total) by mouth daily 3 Active Xarelto 20 mg tablet Take 1 tablet (20 mg total) by mouth daily 3 Active eletriptan (Relpax) 40 mg tablet Take 1 tablet (40 mg total) by mouth as needed 8 Active metoprolol tartrate (LOPRESSOR) 25 mg immediate release tablet Take 1 tablet (25 mg total) by mouth as needed 3 Active metFORMIN (GLUCOPHAGE) 500 mg tablet Take 1 tablet (500 mg total) by mouth 2 (two) times a day with meals Active omeprazole 20 mg tablet,delayed release (DR/EC) Take 1 tablet (20 mg total) by mouth daily Active semaglutide (Ozempic) 1 mg/dose (2 mg/1.5 mL) pen injector injection Inject 0.75 mL (1 mg total) under the skin every 7 days Active ondansetron (ZOFRAN) 4 mg tablet Take 1 tablet (4 mg total) by mouth every 8 (eight) hours as needed for nausea or vomiting Active levothyroxine (SYNTHROID) 112 mcg tablet Take 100 mcg by mouth revolving inventory clerk before breakfast 04/10/202 4 Active Active Problems Problem Noted Date Diagnosed Date Pulmonary hypertension 11/25/2024 Varicose veins of leg with pain, left 07/10/2024 Varicose veins of bilateral lower extremities wi th pain 11/14/2023 Assessment & Plan (08/12/2024 8:56 AM CDT): Left lower extremity incisions are healing well. Does have residual thrombosed superficial veins noted to the left medial thigh. No signs of acute infection. Minor edema patient states throughout the day but encouraged to wear knee-high compression stockings. Patient is agreeable. Right leg not giving her any issues. She is agreeable to continue conservative measures and follow-up as needed. Assessment & Plan (03/02/2024 2:57 PM CDT): Will proceed with left lower extremity great saphenous and small saphenous endoluminal radiofrequency ablation with phlebectomy due to patient's symptomatic bulky varicosities. Risks of the procedure communicated with full understanding. She wishes to proceed. Continue compression therapy in the meantime Assessment & Plan (11/14/2023 10:11 AM DIRECTOR OF OPERATIONS FOR THERAPY): Impression: Bulky varicosities are noted to the left medial thigh extending over left knee and to the medial, anterior, and lateral aspect of left calf. Patient complains of achiness and heaviness with prolonged standing. She denies any history of DVT or hypercoagulable state. Plan: Recommend compression stockings. Prescription for 20 30 mmHg compression stockings given to patient. -patient to follow-up in 3 months for re-evaluation with bilateral lower extremity venous reflux. Hypertension associated with diabetes 11/14/2023 Assessment & Plan (11/14/2023 10:09 AM DIRECTOR OF OPERATIONS FOR THERAPY): Impression: Chronic and stable. Plan: Continue lisinopril Type 2 diabetes mellitus wit hout complication, without long-term current use of insulin ([facility]) 11/14/2023 Assessment & Plan (11/14/2023 10:09 AM DIRECTOR OF OPERATIONS FOR THERAPY): Impression: Chronic with good glucose control. Plan: Continue metformin and Ozempic Hypokalemia due to loss of potassium 10/04/2023 Morbid obesity with BMI of 40.0-44.9, adult 05/2023 KRISTOFER (obstructive sleep apnea) 10/04/2023 Paroxysmal atrial fibrillation (CMS/HCC) 023 Encounters Date Type Department Care Team Description 11/25/2024 8:00 AM DIRECTOR OF OPERATIONS FOR THERAPY Office Visit [facility] [address] [place] [address] Suhas Celestin MD Paroxysmal atrial fibrillation (CMS/HCC) (HCC) (Primary Dx); KRISTOFER (obstructive sleep apnea); Hypokalemia due to loss of potassium; Morbid obesity with BMI of 40.0-44.9, adult (HCC); Hypertension associated with diabetes (HCC); Pulmonary hypertension (HCC) from Last 3 Months Medical History Medical History Date Comments Hypertension Atrial fibrillation (CMS/HCC) (HCC) Obesity Pre-diabetes Thyroid disease Acid indigestion Sleep apnea Family History Medical History Relation Name Comments Atrial fibrillation Mother Hypertension Mother Hyperlipidemia Other Breast cancer Sister Hypertension Sister Relation Name Status Comments Mother Other Sister Social History Tobacco Use Types Packs/Day Years Used Date Smoking Tobacco: Never Tobacco Cessation:Counseling Given: Not Answered Comments Unknown Sex and Gender Information Value Date Recorded Sex Assigned at Not on file Legal Sex Female 1:13 AM DIRECTOR OF OPERATIONS FOR THERAPY Gender Identity Not on file Sexual Orientation Not on file Obstetrics History Last Filed Vital Signs Vital Sign Reading Time Taken Comments Blood Pressure 124/82 11/25/2024 7:55 AM DIRECTOR OF OPERATIONS FOR THERAPY Pulse 73 11/25/2024 7:55 AM DIRECTOR OF OPERATIONS FOR THERAPY Temperature - - Respiratory Rate - - Oxygen Saturation 97% 11/25/2024 7:55 AM DIRECTOR OF OPERATIONS FOR THERAPY Inhaled Oxygen Concentration - - Weight 106.1 kg (234 lb) 11/25/2024 7:55 AM DIRECTOR OF OPERATIONS FOR THERAPY Height 162.6 cm (5' 4 ) 11/25/2024 7:55 AM DIRECTOR OF OPERATIONS FOR THERAPY Body Mass Index 40.17 11/25/2024 7:55 AM DIRECTOR OF OPERATIONS FOR THERAPY Plan of Treatment Health Maintenance Due Date Last Done Comments Albumin Creatinine Ratio, Urine 1976 Cervical Cancer Screening 1976 Colon Cancer Screening-Colonoscopy 1976 Depression Screening 1976 Hemoglobin A1C 1976 Hepatitis C Screening 1976 Dilated Eye Exam 1976 Foot Exam 1976 DTaP/Tdap/Td Vaccine (1 - Tdap) 1987 Hepatitis B Screening 1994 Regular Well Visit/Exam 18-64 1994 Pneumococcal vaccine <65 (1 of 2 - PCV) 1995 Breast Cancer Screening-Mammogram 12/08/2020 020 Influenza Vaccine (#1) 2024 9, 07/16/2018, 10/12/2017, Additional history exists eGFR 07/24/2024 07/24/2023 Lipid Panel 04/09/2025 04/09/2024, 06/18/2023 Procedures Procedure Name Priority Date/Time Associated Diagnosis Comments POCT LIPID PANEL Routine 04/09/2024 7:56 AM CDT Lipid screening BASIC METABOLIC PANEL Routine 07/24/2023 7:53 AM CDT Hypokalemia due to loss of potassium SCREENING MAMMOGRAM BILATERAL W NABOR Schedule Routine, Read Routine (OP Routine) 12/08/2019 9:32 AM DIRECTOR OF OPERATIONS FOR THERAPY Encounter for screening mammogram for malignant neoplasm of breast from Last 3 Months or Most Recently Relevant to Health Maintenance Results * POCT lipid panel (04/09/2024 7:56 AM CDT) Cholesterol, POC 157 mg/dL HDL, POC 58 mg/dL Triglycerides, POC 93 mg/dL LDL Cholesterol POC 81 mg/dL Chol/HDL Ratio, POC 1.4 Non-HDL Cholesterol, POC 100 mg/dL Cholesterol Total, POC 157 mg/dL Capillary blood 04/09/2024 7:56 AM CDT us Suhas Celestin MD POINT OF CARE TEST ORDERA BLES Final Result * Basic metabolic panel (07/24/2023 7:53 AM CDT) Glucose 81 65 - 99 mg/dL [facility] Comment: Fasting reference interval BUN 12 7 - 25 mg/dL [facility] Creatinine 0.67 0.50 - 0.99 mg/dL [facility] eGFR 109 > OR = 60 mL/min/1.7 3m2 [facility] BUN/creat ratio SEE NOTE: 6 - 22 (calc) [facility] Comment: Not Reported: BUN and Creatinine are within reference range. Sodium 142 135 - 146 mmol/L [facility] Potassium, pl 4.1 3.5 - 5.3 mmol/L [facility] Chloride 104 98 - 110 mmol/L [facility] CO2 31 20 - 32 mmol/L [facility] Calcium 8.9 8.6 - 10.2 mg/dL [facility] Blood 07/24/2023 7:53 AM CDT 07/24/2023 7:54 AM CDT Narrative [facility] - 07/25/2023 2:26 AM CDT FASTING:YES FASTING: YES Rina Souza NP LAB BLOOD ORDERABLES Grecia l Result [facility] [address] [place] [address] * Screening Mammogram Bilateral W Nabor (12/08/2019 9:32 AM DIRECTOR OF OPERATIONS FOR THERAPY) Anatomical Region Laterality Modality Breast Bilateral Mammography Narrative 12/10/2019 9:55 AM DIRECTOR OF OPERATIONS FOR THERAPY Mammogram Technique: Bilateral Digital Breast Tomosynthesis, Bilateral C-view 2D Screening mammogram. Views obtained: bilateral craniocaudal and bilateral mediolateral oblique. Computer Aided Detection was performed. Mammogram Findings: The present examination has been compared to a prior imaging study performed at [facility] on 12/25/2017. The breasts are heterogeneously dense, which may obscure small masses. There is no suspicious abnormality in either breast. Impression: Annual screening mammography is recommended. OVERALL FINAL ASSESSMENT: BI-RADS CATEGORY 1: Negative. Procedure Note Candy Ellis MD - 12/10/2019 Mammogram Technique: Bilateral Digital Breast Tomosynthesis, Bilateral C-view 2D Screening mammogram. Views obtained: bilateral craniocaudal and bilateral mediolateral oblique. Computer Aided Detection was performed. Mammogram Findings: The present examination has been compared to a prior imaging study performed at [facility] on 12/25/2017. The breasts are heterogeneously dense, which may obscure small masses. There is no suspicious abnormality in either breast. Impression: Annual screening mammography is recommended. OVERALL FINAL ASSESSMENT: BI-RADS CATEGORY 1: Negative. Mark Lee MD IMG MAMMO PROCEDURES Final Result from Last 3 Months or Most Recently Relevant to Health Maintenance Insurance [employer] [place] [employer] [place] Care Teams Anchor Tack Puller Relationship Specialty Start Date End Date Montana Acosta MD PCP - General 01/03/18
--- OUTSIDE RECORDS SUMMARY | 2024-12-14 11:49 | XMS_ITS | Referral Summary ---
Author Organization [address] Address Formerly [facility] [place] [address] Care Team Providers Care Knotting Machine Operator Portable Name Role Phone Montana Acosta MD Primary Care Provider [phone] Encounters Date Type Department Care Team Description 11/25/2024 8:00 AM COMBINATION WINDOW INSTALLER Office Visit [facility] Cardiology [address] [place] [address] Suhas Celestin MD Paroxysmal atrial fibrillation (CMS/HCC) (HCC) (Primary Dx); KRISTOFER (obstructive sleep apnea); Hypokalemia due to loss of potassium; Morbid obesity with BMI of 40.0-44.9, adult (HCC); Hypertension associated with diabetes (HCC); Pulmonary hypertension (HCC) from Last 3 Months Allergies No known active allergies Medications lisinopriL [...] mcg tablet Take 100 mcg by mouth tie man before breakfast Active Active Problems Problem Noted Date Diagnosed [...] meantime Assessment & Plan (11/14/2023 10:11 AM COMBINATION WINDOW INSTALLER): Impression: Bulky varicosities are noted to the [...] 11/14/2023 Assessment & Plan (11/14/2023 10:09 AM COMBINATION WINDOW INSTALLER): Impression: Chronic and stable. Plan: Continue lisinopril Type 2 diabetes mellitus wit hout complication, without long-term current use of insulin ([facility]) 11/14/2023 Assessment & Plan (11/14/2023 10:09 AM COMBINATION WINDOW INSTALLER): Impression: Chronic with good glucose control. Plan: Continue metformin and Ozempic Hypokalemia due to loss of potassium 10/04/2023 Morbid obesity with BMI of 40.0-44.9, adult 05/2023 KRISTOFER (obstructive sleep apnea) 10/04/2023 Paroxysmal atrial fibrillation ([facility]) 023 Social History Tobacco Use Types Packs/Day Years Used Date Smoking Tobacco: Never Tobacco Cessation:Counseling Given: Not Answered Comments Unknown Sex and Gender Information Value Date Recorded Sex Assigned at Not on file Legal Sex Female 1:13 AM COMBINATION WINDOW INSTALLER Gender Identity Not on file Sexual Orientation Not on file Last Filed Vital Signs Vital Sign Reading Time Taken Comments Blood Pressure 124/82 11/25/2024 7:55 AM COMBINATION WINDOW INSTALLER Pulse 73 11/25/2024 7:55 AM COMBINATION WINDOW INSTALLER Temperature - - Respiratory Rate - - Oxygen Saturation 97% 11/25/2024 7:55 AM COMBINATION WINDOW INSTALLER Inhaled Oxygen Concentration - - Weight 106.1 kg (234 lb) 11/25/2024 7:55 AM COMBINATION WINDOW INSTALLER Height 162.6 cm (5' 4 ) 11/25/2024 7:55 AM COMBINATION WINDOW INSTALLER Body Mass Index 40.17 11/25/2024 7:55 AM COMBINATION WINDOW INSTALLER Plan of Treatment Not on file Procedures Procedure Name Priority Date/Time Associated Diagnosis Comments POCT LIPID PANEL Routine 04/09/2024 7:56 AM CDT Lipid screening BASIC METABOLIC PANEL Routine 07/24/2023 7:53 AM CDT Hypokalemia due to loss of potassium SCREENING MAMMOGRAM BILATERAL W NABOR Schedule Routine, Read Routine (OP Routine) 12/08/2019 9:32 AM COMBINATION WINDOW INSTALLER Encounter for screening mammogram for malignant neoplasm of breast from Last 3 Months or Most Recently Relevant to Health Maintenance Results * POCT lipid panel (04/09/2024 7:56 AM CDT) Cholesterol, POC 157 mg/dL HDL, POC 58 mg/dL Triglycerides, POC 93 mg/dL LDL Cholesterol POC 81 mg/dL Chol/HDL Ratio, POC 1.4 Non-HDL Cholesterol, POC 100 mg/dL Cholesterol Total, POC 157 mg/dL Capillary blood 04/09/2024 7 :56 AM CDT us Suhas Celestin MD POINT [...] 07/25/2023 2:26 AM CDT FASTING:YES FASTING: YES us Rina Souza NP LAB BLOOD ORDERABLES Grecia l Result [facility] [address] [address] [address] * Screening Mammogram Bilateral W Nabor (12/08/2019 9:32 AM COMBINATION WINDOW INSTALLER) Anatomical Region Laterality Modality Breast Bilateral Mammography Narrative 12/10/2019 9:55 AM COMBINATION WINDOW INSTALLER Mammogram Technique: Bilateral Digital Breast Tomosynthesis, Bilateral C-view 2D Screening mammogram. Views obtained: bilateral craniocaudal and bilateral mediolateral oblique. Computer Aided Detection was performed. Mammogram Findings: The present examination has been compared to a prior imaging study performed at [facility] on 12/25/2017. The breasts are heterogeneously [...] to a prior imaging study performed at [facility] on 12/25/2017. The breasts are heterogeneously dense, which may obscure small masses. There is no suspicious abnormality in either breast. Impression: Annual screening mammography is recommended. OVERALL FINAL ASSESSMENT: BI-RADS CATEGORY 1: Negative. Mark Lee MD IMG MAMMO PROCEDURES Final Result from Last 3 Months or Most Recently Relevant to Health Maintenance Insurance [employer] [facility] [employer] [facility] Care Teams Knotting Machine Operator Portable Relationship Specialty Start Date End Date Montana Acosta MD PCP - General 01/03/18
== END 2024-12-14 10:13 | disposition home or self-care (01) ==
PROVIDERS: Emergency Provider Registered Nurse; PCP Family Medicine
DX: H65.01 Acute serous otitis media, right ear (principal); I48.91 Unspecified atrial fibrillation; I10 Essential (primary) hypertension; E78.5 Hyperlipidemia, unspecified; E03.9 Hypothyroidism, unspecified; G47.33 Obstructive sleep apnea (adult) (pediatric); E66.01 Morbid (severe) obesity due to excess calories; Z68.38 Body mass index [BMI] 38.0-38.9, adult; Z86.72 Personal history of thrombophlebitis
CPT/HCPCS: 99213; G0463

== ENCOUNTER 2025-02-19 17:33 | Emergency (ER) | payer BC, SELFPAY ==
--- OUTSIDE RECORDS SUMMARY | 2025-02-19 17:36 | XMS_ITS | Clinical Summary ---
Author Organization [address] Address [address] [facility] [address] [place] [address] Phone Care Team Providers Care Associate Professor Of Chemistry Name Role Phone Nuno Smith MD Primary Care Provider [phone] Social History Tobacco Use Types Packs/Day Years Used Date Smoking Tobacco: Never Assessed Comments Unknown Sex and Gender Information Value Date Recorded Sex Assigned at Not on file Legal Sex Female 8:10 AM PEDIATRIC LPN Gender Identity Not on file Sexual Orientation Not on file Plan of Treatment Health Maintenance Due Date Last Done Comments DTAP/TDAP/TD VACCINES (1 - Tdap) 1995 HEPATITIS B VACCINES (1 of 3 - 19+ 3-dose series) 10/29 HPV/Cotest (21-29) 1997 CERVICAL CANCER SCREENING 2006 HPV/Cotest (30-65) 2006 PAP SMEAR 2006 BREAST CANCER SCREENING 2016 COLORECTAL SCREENING 2021 Colorectal Cancer Screening 2021 FIT-DNA Q 3 years 2021 FIT/FOBT Q 1 year 2021 Flex Sig/CT Colonography Q 5 years 2021 INFLUENZA VACCINE (#1) 2024 Insurance [facility] [id number] Care Teams Associate Professor Of Chemistry Relationship Specialty Start Date End Date Nuno Smith MD PCP - General Family Practice 11/10/12
--- OUTSIDE RECORDS SUMMARY | 2025-02-19 17:36 | XMS_ITS | Referral Summary ---
Author Organization [place] [id number] [facility] Address [facility] [place] [address] Care Team Providers Care Mannequin Molder Name Role Phone Montana Acosta MD Primary Care Provider [phone] Encounters Date Type Department Care Team Description 11/25/2024 8:00 AM SCHOOL PSYCHOLOGY PROFESSOR Office Visit [facility] Cardiology [address] [place] [address] Suhas Celestin MD Paroxysmal atrial fibrillation (HCC) (Primary Dx); KRISTOFER (obstructive sleep apnea); [...] mcg tablet Take 100 mcg by mouth pricing supervisor before breakfast Active Active Problems Problem Noted [...] meantime Assessment & Plan (11/14/2023 10:11 AM SCHOOL PSYCHOLOGY PROFESSOR): Impression: Bulky varicosities are noted to the [...] 11/14/2023 Assessment & Plan (11/14/2023 10:09 AM SCHOOL PSYCHOLOGY PROFESSOR): Impression: Chronic and stable. Plan: Continue lisinopril Type 2 diabetes mellitus wit hout complication, without long-term current use of insulin 11/14/2023 Assessment & Plan (11/14/2023 10:09 AM SCHOOL PSYCHOLOGY PROFESSOR): Impression: Chronic with good glucose control. Plan: Continue metformin and Ozempic Hypokalemia due to loss of potassium 10/04/2023 Morbid obesity with BMI of 40.0-44.9, adult 12/0 05/2023 KRISTOFER (obstructive sleep apnea) 10/04/2023 Paroxysmal atrial fibrillation 10/04/2023 Social History Tobacco Use Types Packs/Day Years Used Date Smoking Tobacco: Never Tobacco Cessation:Counseling Given: Not Answered Comments Unknown Sex and Gender Information Value Date Recorded Sex Assigned at Not on file Legal Sex Female 1:13 AM SCHOOL PSYCHOLOGY PROFESSOR Gender Identity Not on file Sexual Orientation Not on file Last Filed Vital Signs Vital Sign Reading Time Taken Comments Blood Pressure 124/82 11/25/2024 7:55 AM SCHOOL PSYCHOLOGY PROFESSOR Pulse 73 11/25/2024 7:55 AM SCHOOL PSYCHOLOGY PROFESSOR Temperature - - Respiratory Rate - - Oxygen Saturation 97% 11/25/2024 7:55 AM SCHOOL PSYCHOLOGY PROFESSOR Inhaled Oxygen Concentration - - Weight 106.1 kg (234 lb) 11/25/2024 7:55 AM SCHOOL PSYCHOLOGY PROFESSOR Height 162.6 cm (5' 4 ) 11/25/2024 7:55 AM SCHOOL PSYCHOLOGY PROFESSOR Body Mass Index 40.17 11/25/2024 7:55 AM SCHOOL PSYCHOLOGY PROFESSOR Plan of Treatment Not on file Procedures Procedure Name Priority Date/Time Associated Diagnosis Comments POCT LIPID PANEL Routine 04/09/2024 7:56 AM CDT Lipid screening BASIC METABOLIC PANEL Routine 07/24/2023 7:53 AM CDT Hypokalemia due to loss of potassium SCREENING MAMMOGRAM BILATERAL W NABOR Schedule Routine, Read Routine (OP Routine) 12/08/2019 9:32 AM SCHOOL PSYCHOLOGY PROFESSOR Encounter for screening mammogram for malignant neoplasm [...] BLOOD ORDERABLES Grecia l Result [facility] [address] [address] * Screening Mammogram Bilateral W Nabor (12/08/2019 9:32 AM SCHOOL PSYCHOLOGY PROFESSOR) Anatomical Region Laterality Modality Breast Bilateral Mammography Narrative 12/10/2019 9:55 AM SCHOOL PSYCHOLOGY PROFESSOR Mammogram Technique: Bilateral Digital Breast Tomosynthesis, Bilateral C-view 2D Screening mammogram. Views obtained: bilateral craniocaudal and bilateral mediolateral oblique. Computer Aided Detection was performed. Mammogram Findings: The present examination has been compared to a prior imaging study performed at [facility] on 12/25/2017. The breasts are heterogeneously dense, [...] to a prior imaging study performed at [facility] on 12/25/2017. The breasts are heterogeneously dense, which may obscure small masses. There is no suspicious abnormality in either breast. Impression: Annual screening mammography is recommended. OVERALL FINAL ASSESSMENT: BI-RADS CATEGORY 1: Negative. Mark Lee MD IMG MAMMO PROCEDURES Final Result from Last 3 Months or Most Recently Relevant to Health Maintenance Insurance [employer] [place] [facility] [facility] Care Teams Mannequin Molder Relationship Specialty Start Date End Date Montana Acosta MD PCP - General 01/03/18
--- OUTSIDE RECORDS SUMMARY | 2025-02-19 17:36 | XMS_ITS | Clinical Summary ---
Author Organization [address] Address [facility] [place] [address] Care Team Providers Care Stator Winder Name Role Phone Montana Acosta MD Primary Care Provider [phone] Allergies No known active allergies Medications lisinopriL [...] mcg tablet Take 100 mcg by mouth cold rolling machine setter before breakfast 04/10/202 4 Active Active Problems [...] meantime Assessment & Plan (11/14/2023 10:11 AM MATH AND SCIENCES DEPARTMENT CHAIR): Impression: Bulky varicosities are noted to the [...] 11/14/2023 Assessment & Plan (11/14/2023 10:09 AM MATH AND SCIENCES DEPARTMENT CHAIR): Impression: Chronic and stable. Plan: Continue lisinopril Type 2 diabetes mellitus wit hout complication, without long-term current use of insulin 11/14/2023 Assessment & Plan (11/14/2023 10:09 AM MATH AND SCIENCES DEPARTMENT CHAIR): Impression: Chronic with good glucose control. Plan: Continue metformin and Ozempic Hypokalemia due to loss of potassium 10/04/2023 Morbid obesity with BMI of 40.0-44.9, adult 05/2023 KRISTOFER (obstructive sleep apnea) 10/04/2023 Paroxysmal atrial fibrillation 10/04/2023 Encounters Date Type Department Care Team Description 11/25/2024 8:00 AM MATH AND SCIENCES DEPARTMENT CHAIR Office Visit [facility] Cardiology [address] [place] [address] Suhas Celestin MD Paroxysmal atrial fibrillation (HCC) (Primary Dx); KRISTOFER (obstructive sleep apnea); Hypokalemia due to loss of potassium; Morbid obesity with BMI of 40.0-44.9, adult (HCC); Hypertension associated with diabetes (HCC); Pulmonary hypertension (HCC) from Last 3 Months Medical History Medical History Date Comments Hypertension Atrial fibrillation (HCC) Obesity Pre-diabetes Thyroid disease Acid indigestion [...] on file Legal Sex Female 1:13 AM MATH AND SCIENCES DEPARTMENT CHAIR Gender Identity Not on file Sexual Orientation Not on file Obstetrics History Last Filed Vital Signs Vital Sign Reading Time Taken Comments Blood Pressure 124/82 11/25/2024 7:55 AM MATH AND SCIENCES DEPARTMENT CHAIR Pulse 73 11/25/2024 7:55 AM MATH AND SCIENCES DEPARTMENT CHAIR Temperature - - Respiratory Rate - - Oxygen Saturation 97% 11/25/2024 7:55 AM MATH AND SCIENCES DEPARTMENT CHAIR Inhaled Oxygen Concentration - - Weight 106.1 kg (234 lb) 11/25/2024 7:55 AM MATH AND SCIENCES DEPARTMENT CHAIR Height 162.6 cm (5' 4 ) 11/25/2024 7:55 AM MATH AND SCIENCES DEPARTMENT CHAIR Body Mass Index 40.17 11/25/2024 7:55 AM MATH AND SCIENCES DEPARTMENT CHAIR Plan of Treatment Health Maintenance Due Date [...] Read Routine (OP Routine) 12/08/2019 9:32 AM MATH AND SCIENCES DEPARTMENT CHAIR Encounter for screening mammogram for malignant neoplasm [...] NP LAB BLOOD ORDERABLES Grecia l Result [facility] [address] [place] [address] * Screening Mammogram Bilateral W Nabor (12/08/2019 9:32 AM MATH AND SCIENCES DEPARTMENT CHAIR) Anatomical Region Laterality Modality Breast Bilateral Mammography Narrative 12/10/2019 9:55 AM MATH AND SCIENCES DEPARTMENT CHAIR Mammogram Technique: Bilateral Digital Breast Tomosynthesis, Bilateral C-view 2D Screening mammogram. Views obtained: bilateral craniocaudal and bilateral mediolateral oblique. Computer Aided Detection was performed. Mammogram Findings: The present examination has been compared to a prior imaging study performed at [facility] on 12/25/2017. The breasts are heterogeneously [...] to a prior imaging study performed at [facility] on 12/25/2017. The breasts are heterogeneously dense, which may obscure small masses. There is no suspicious abnormality in either breast. Impression: Annual screening mammography is recommended. OVERALL FINAL ASSESSMENT: BI-RADS CATEGORY 1: Negative. Mark Lee MD IMG MAMMO PROCEDURES Final Result from Last 3 Months or Most Recently Relevant to Health Maintenance Insurance [employer] [place] [employer] [place] Care Teams Stator Winder Relationship Specialty Start Date End Date Montana Acosta MD PCP - General 01/03/18
--- NOTE | 2025-02-19 17:40 | ED.EAR ---
HPI - Ear Problem General Chief complaint: Ear Stated complaint: Ear pain Time Seen by Provider: 02/19/25 17:40 Source: patient Mode of arrival: ambulatory Limitations: no limitations History of Present Illness HPI Narrative: Alba is a 49-year-old female patient presenting to the clinic today with complaints of right ear pain that just started last night. Complaining of pain radiating into the jaw and to the posterior ear. Notes a painful bump to the posterior auricle. No obvious redness or swelling. Denies any fevers, chills, body aches. No URI symptoms. Related Data Home Medications ?Medication ?Instructions ?Recorded ?Confirmed ?Last Taken ?Type omeprazole 10 mg capsule,delayed 10 mg PO DAILY 06/30/20 02/04/25 06/01/23 12:00 History release levonorgestrel (Mirena) 1 device intrauterine ONCE 04/08/23 02/04/25 Unknown History ondansetron HCl 4 mg tablet 4 mg PO Q6H PRN Nausea 06/01/23 02/04/25 Unknown History cholecalciferol (vitamin D3) 50 50 mcg PO DAILY 08/04/24 02/04/25 Unknown History mcg (2,000 unit) capsule Allergies Allergy/AdvReac Type Severity Reaction Status Date / Time No Known Allergies Allergy Verified 02/19/25 17:52 Review of Systems Review of Systems: Pertinent positives per HPI. Patient denies any fever, chills, rash, headache, visual changes, dizziness, cough, runny nose, sore throat, shortness of breath, chest pain, palpitations, nausea, vomiting, diarrhea, constipation, abdominal pain, or any urinary issues. [facility] Past Medical History Medical History A-fib Low back pain Superficial phlebitis and thrombophlebitis of left leg Pelvic pain Impingement syndrome, shoulder, left Acute meniscal tear of left knee Varicose vein of leg Partial tear of right rotator cuff Impingement syndrome of right shoulder Biceps tendinopathy of right upper extremity Morbid obesity with BMI of 40.0-44.9, adult Essential (primary) hypertension Hyperlipidemia, unspecified Hypothyroidism (acquired) Migraine with aura, not intractable, without status migrainosus KRISTOFER (obstructive sleep apnea) CPAP Obstructive sleep apnea (adult) (pediatric) Perimenopausal Prehypertension Vaginal delivery x 2 Anxiety Hypertension Hypothyroid Surgical History Surgical History Status post phlebectomy Status post right rotator cuff repair History of repair of right rotator cuff (~12/29/20) Rt, with Subacromial Decompression History of dilatation and curettage (~2002) H/O hernia repair (~2014) Previous section History of cholecystectomy Family History Family History Mother Myocardial infarction Diabetes mellitus Atrial fibrillation Grandparent Cancer, colon Sibling Hypertension Hypolipidemia Grandparent Atrial fibrillation Social History Social History Social History: The patient lives with her who is the durable power civil litigation attorney for healthcare. She works for [employer]. She has 4 children. She is a lifelong nonsmoker. She does not use any alcohol marijuana or illicit drugs. Code status full Smoking status: Never smoker Second hand tobacco smoke exposure: No Alcohol intake: never Substance use: never Substance use type: does not use Do You Feel Safe in your Home?: Yes Lack of Transportation: No Lack of Food: Never True Current Housing: I Have Housing Concerned About Future Housing: No Difficulty Paying Gas/Electric Bills: No Difficulty Paying for Meds: No Currently Unemployed: No Education: Bachelor's Degree Difficulty w/ Childcare or Family Care: No Living arrangements: with family Gender identity (if verbalized by the patient): Female Sexual Orientation (if Verbalized by the Patient): Straight or Heterosexual Spiritual care concerns: No Comments At the time of my signature, I reviewed and agree with the nursing past medical, surgical, social, and family history. There is no relevant family history pertinent to the patient complaint. Exam Narrative: General: Well-developed, well nourished, in no apparent distress Head: Normocephalic, atraumatic Eyes: Pupils equally round and reactive to light bilaterally, EOM intact, sclera and conjunctive clear, no discharge, lids normal Ears: TMs intact and clear, ear canals clear, no drainage, grossly hearing normal. Tenderness to palpation over the postaurical lymph node with mild swelling, no redness or erythema, tenderness to palpation over the right eustachian tube Nose: Nares patent, no discharge, no inflammation, no sinus tenderness. Mouth: Oropharynx without lesions or masses, good dentition, MMM. No tenderness over the TMJ or over any teeth Neck: Supple, trachea midline, no enlargement of anterior or posterior cervical nodes, no thyroid masses or goiter palpable. Cardio: Regular rate and rhythm, s1 and s2 normal, no murmur appreciated. Resp: Clear to auscultation bilaterally anteriorly and posteriorly, no rhonchi, rales, wheezing or rubs Course Course Emergency Course: Portions of this record may have been created with voice recognition software. Level of Care: Express Care Visit Vital Signs Vital signs: Vital signs reviewed Medical Decision Making MDM Narrative Medical decision making narrative: At the time of visit patient is resting comfortably on the exam table. Patient appears to be nontoxic. Plan: I suspect the patient has right otalgia with postaurical lymph node swelling. Differential of mastoiditis is unlikely as the area is not red, swollen, and erythemic however offered to send patient to the emergency room for further evaluation and she declined at this time. Supportive measures were discussed with the patient and they voiced understanding discharge instructions and agrees to treatment plan. Return precautions reviewed Differential Diagnosis Differential Diagnosis: Otitis media, otitis externa, eustachian tube dysfunction, cerumen impaction, upper respiratory infection, dental pain, TMJ, serous otitis, mastoiditis Discharge Plan Discharge Clinical Impression: Otalgia of right ear, Posterior auricular lymphadenopathy Patient Disposition: Home Condition: Stable Instructions: Antibiotic Form, Earache (ED) Additional Instructions: Offer to send to the emergency room for further evaluation and you declined at this time. No sign middle ear infection Differentials include eustachian tube dysfunction, mastoiditis, and post auricle lymphnode swelling Tylenol/motrin as needed for pain May use heating pad to alleviate pain May continue [id number] antihistamines as well as trying Flonase. Follow up with your PCP in 3-5 days if symptoms persist. If symptoms worsen recommend going to the emergency room-fever, increase in swelling, or increase in pain Patient Language: Slovak Prescriptions: No Action Mirena 21 mcg/24 hours (8 yrs) 52 mg intrauterine device 1 device I-UTERINE ONCE Rx Instructions: Inserted in 2019 eletriptan [Relpax] 40 mg tablet 40 mg PO ONCE PRN (Reason: migraine headache) Qty: 30 3RF nystatin 100,000 unit/gram powder 1 applic topical BID Qty: 15 0RF Ozempic 2 mg/dose (8 mg/3 mL) pen injector 2 mg subcut WEEKLY Qty: 9 3RF levothyroxine [Synthroid] 100 mcg tablet 100 mcg PO DAILY Qty: 90 2RF celecoxib 200 mg capsule 200 mg PO DAILY Qty: 90 0RF omeprazole 10 mg capsule,delayed release(DR/EC) 10 mg PO DAILY ondansetron HCl 4 mg tablet 4 mg PO Q6H PRN (Reason: Nausea) metoprolol tartrate 25 mg Tablet 25 mg PO Q2H PRN (Reason: for fast heart beats) Qty: 30 0RF Xarelto 20 mg tablet 20 mg PO DAILY@1700 Qty: 90 3RF lisinopril 10 mg tablet 10 mg PO DAILY Qty: 90 3RF cholecalciferol (vitamin D3) 50 mcg (2,000 unit) capsule 50 mcg PO DAILY Trintellix 10 mg tablet See Rx Instructions .ROUTE .COMPLEX Qty: 90 1RF Dose Instruction: TAKE 1 TABLET BY MOUTH DAILY Rx Instructions: TAKE 1 TABLET BY MOUTH DAILY Follow-up/Referrals: Montana Acosta MD [Primary Care Provider] - Time of Disposition: 18:07 Quality NIHSS Nursing Documentation ED NIHSS nursing documentation: reviewed/agree
[2025-02-19 17:44] VITALS: BP 149/95; PULSE 66; RESP 18; TEMP 36.7; O2SAT 100
== END 2025-02-19 18:12 | disposition home or self-care (01) ==
PROVIDERS: Emergency Provider Nurse Practitioner Family; PCP Family Medicine
DX: R59.0 Localized enlarged lymph nodes (principal); H92.01 Otalgia, right ear; I48.91 Unspecified atrial fibrillation; E78.5 Hyperlipidemia, unspecified; E03.9 Hypothyroidism, unspecified; I10 Essential (primary) hypertension
CPT/HCPCS: 99211; G0463

== ENCOUNTER 2025-02-22 08:05 | Emergency (ER) | payer BC, SELFPAY ==
--- OUTSIDE RECORDS SUMMARY | 2025-02-22 08:10 | XMS_ITS | Clinical Summary ---
Author Organization [address] Address [facility] [place] [address] Care Team Providers Care Insulation Power Unit Tender Name Role Phone Montana Acosta MD Primary Care Provider [phone] Allergies No known active allergies Medications lisinopriL [...] mcg tablet Take 100 mcg by mouth auto wash buffer before breakfast 04/10/202 4 Active Active Problems [...] meantime Assessment & Plan (11/14/2023 10:11 AM FORGE OPERATOR): Impression: Bulky varicosities are noted to the [...] 11/14/2023 Assessment & Plan (11/14/2023 10:09 AM FORGE OPERATOR): Impression: Chronic and stable. Plan: Continue lisinopril Type 2 diabetes mellitus wit hout complication, without long-term current use of insulin 11/14/2023 Assessment & Plan (11/14/2023 10:09 AM FORGE OPERATOR): Impression: Chronic with good glucose control. Plan: Continue metformin and Ozempic Hypokalemia due to loss of potassium 10/04/2023 Morbid obesity with BMI of 40.0-44.9, adult 05/2023 KRISTOFER (obstructive sleep apnea) 10/04/2023 Paroxysmal atrial fibrillation 10/04/2023 Encounters Date Type Department Care Team Description 11/25/2024 8:00 AM FORGE OPERATOR Office Visit [facility] Medical [facility] Cardiology [address] [place] [address] Suhas Celestin MD Paroxysmal atrial [...] on file Legal Sex Female 1:13 AM FORGE OPERATOR Gender Identity Not on file Sexual Orientation Not on file Obstetrics History Last Filed Vital Signs Vital Sign Reading Time Taken Comments Blood Pressure 124/82 11/25/2024 7:55 AM FORGE OPERATOR Pulse 73 11/25/2024 7:55 AM FORGE OPERATOR Temperature - - Respiratory Rate - - Oxygen Saturation 97% 11/25/2024 7:55 AM FORGE OPERATOR Inhaled Oxygen Concentration - - Weight 106.1 kg (234 lb) 11/25/2024 7:55 AM FORGE OPERATOR Height 162.6 cm (5' 4 ) 11/25/2024 7:55 AM FORGE OPERATOR Body Mass Index 40.17 11/25/2024 7:55 AM FORGE OPERATOR Plan of Treatment Health Maintenance Due Date [...] Read Routine (OP Routine) 12/08/2019 9:32 AM FORGE OPERATOR Encounter for screening mammogram for malignant neoplasm [...] BLOOD ORDERABLES Grecia l Result BALDEMAR [facility] [address] [place] [address] * Screening Mammogram Bilateral W Nabor (12/08/2019 9:32 AM FORGE OPERATOR) Anatomical Region Laterality Modality Breast Bilateral Mammography Narrative 12/10/2019 9:55 AM FORGE OPERATOR Mammogram Technique: Bilateral Digital Breast Tomosynthesis, Bilateral C-view 2D Screening mammogram. Views obtained: bilateral craniocaudal and bilateral mediolateral oblique. Computer Aided Detection was performed. Mammogram Findings: The present examination has been compared to a prior imaging study performed at [facility] on 12/25/2017. The breasts are heterogeneously [...] to a prior imaging study performed at [facility] on 12/25/2017. The breasts are heterogeneously dense, which may obscure small masses. There is no suspicious abnormality in either breast. Impression: Annual screening mammography is recommended. OVERALL FINAL ASSESSMENT: BI-RADS CATEGORY 1: Negative. Mark Lee MD IMG MAMMO PROCEDURES Final Result from Last 3 Months or Most Recently Relevant to Health Maintenance [place] [place] Care Teams Insulation Power Unit Tender Relationship Specialty Start Date End Date Montana Acosta MD PCP - General 01/03/18
--- OUTSIDE RECORDS SUMMARY | 2025-02-22 08:10 | XMS_ITS | Clinical Summary ---
Author Organization [facility] [address] Address [address] [facility] 3rd [place] [address] Phone Care Team Providers Care Metal Worker Name Role Phone Nuno Smith MD Primary Care Provider [phone] Social History Tobacco Use Types Packs/Day Years Used Date Smoking Tobacco: Never Assessed Comments Unknown Sex and Gender Information Value Date Recorded Sex Assigned at Not on file Legal Sex Female 8:10 AM MASTER MECHANIC Gender Identity Not on file Sexual Orientation [...] years 2021 INFLUENZA VACCINE (#1) 2024 Insurance [facility] [id number] Care Teams Metal Worker Relationship Specialty Start Date End Date Nuno Smith MD PCP - General Family Practice 11/10/12
--- OUTSIDE RECORDS SUMMARY | 2025-02-22 08:11 | XMS_ITS | Referral Summary ---
Author Organization [place] [id number] [facility] Address [facility] [place] [address] Care Team Providers Care Marketing Research Coordinator Name Role Phone Montana Acosta MD Primary Care Provider [phone] Encounters Date Type Department Care Team Description 11/25/2024 8:00 AM CLERK ANALYST Office Visit [facility] Medical Group Cardiology [address] [place] [address] Suhas Celestin MD Paroxysmal atrial [...] mcg tablet Take 100 mcg by mouth early morning babysitter before breakfast Active Active Problems Problem Noted [...] meantime Assessment & Plan (11/14/2023 10:11 AM CLERK ANALYST): Impression: Bulky varicosities are noted to the [...] 11/14/2023 Assessment & Plan (11/14/2023 10:09 AM CLERK ANALYST): Impression: Chronic and stable. Plan: Continue lisinopril Type 2 diabetes mellitus wit hout complication, without long-term current use of insulin 11/14/2023 Assessment & Plan (11/14/2023 10:09 AM CLERK ANALYST): Impression: Chronic with good glucose control. Plan: [...] on file Legal Sex Female 1:13 AM CLERK ANALYST Gender Identity Not on file Sexual Orientation Not on file Last Filed Vital Signs Vital Sign Reading Time Taken Comments Blood Pressure 124/82 11/25/2024 7:55 AM CLERK ANALYST Pulse 73 11/25/2024 7:55 AM CLERK ANALYST Temperature - - Respiratory Rate - - Oxygen Saturation 97% 11/25/2024 7:55 AM CLERK ANALYST Inhaled Oxygen Concentration - - Weight 106.1 kg (234 lb) 11/25/2024 7:55 AM CLERK ANALYST Height 162.6 cm (5' 4 ) 11/25/2024 7:55 AM CLERK ANALYST Body Mass Index 40.17 11/25/2024 7:55 AM CLERK ANALYST Plan of Treatment Not on file Procedures Procedure Name Priority Date/Time Associated Diagnosis Comments POCT LIPID PANEL Routine 04/09/2024 7:56 AM CDT Lipid screening BASIC METABOLIC PANEL Routine 07/24/2023 7:53 AM CDT Hypokalemia due to loss of potassium SCREENING MAMMOGRAM BILATERAL W NABOR Schedule Routine, Read Routine (OP Routine) 12/08/2019 9:32 AM CLERK ANALYST Encounter for screening mammogram for malignant neoplasm [...] BLOOD ORDERABLES Grecia l Result QUEST [facility] [address] [address] * Screening Mammogram Bilateral W Nabor (12/08/2019 9:32 AM CLERK ANALYST) Anatomical Region Laterality Modality Breast Bilateral Mammography Narrative 12/10/2019 9:55 AM CLERK ANALYST Mammogram Technique: Bilateral Digital Breast Tomosynthesis, Bilateral C-view 2D Screening mammogram. Views obtained: bilateral craniocaudal and bilateral mediolateral oblique. Computer Aided Detection was performed. Mammogram Findings: The present examination has been compared to a prior imaging study performed at [facility] on 12/25/2017. The breasts are [...] to a prior imaging study performed at [facility] on 12/25/2017. The breasts are heterogeneously dense, which may obscure small masses. There is no suspicious abnormality in either breast. Impression: Annual screening mammography is recommended. OVERALL FINAL ASSESSMENT: BI-RADS CATEGORY 1: Negative. Mark Lee MD IMG MAMMO PROCEDURES Final Result from Last 3 Months or Most Recently Relevant to Health Maintenance Insurance [employer] [place] BLUE ACCESS [facility] Care Teams Marketing Research Coordinator Relationship Specialty Start Date End Date Montana Acosta MD PCP - General 01/03/18
[2025-02-22 08:12] VITALS: BP 196/112; PULSE 82; RESP 18; TEMP 36.7; O2SAT 99
[2025-02-22 08:23] VITALS: BP 160/105; PULSE 81; RESP 19; O2SAT 99
--- NOTE | 2025-02-22 08:42 | ED_ITS ---
HPI - General Adult General Chief complaint: Ear Stated complaint: bumps behind right ear Time Seen by Provider: 02/22/25 08:08 History of Present Illness HPI narrative: Patient is a 49-year-old female who presents ER with reports of pain in her scalp and bumps behind her right ear. Was seen at urgent care a couple days ago and told she had some lymphadenopathy and to return to an ER if pain worsens. Reports tingling and burning to the scalp has intensified and she has additional bumps at the posterior neck. No facial pain or numbness. No difficulty hearing. No other concerns. Related Data Home Medications ?Medication ?Instructions ?Recorded ?Confirmed ?Last Taken ?Type omeprazole 10 mg capsule,delayed 10 mg PO DAILY 06/30/20 02/04/25 06/01/23 12:00 History release levonorgestrel (Mirena) 1 device intrauterine ONCE 04/08/23 02/04/25 Unknown History ondansetron HCl 4 mg tablet 4 mg PO Q6H PRN Nausea 06/01/23 02/04/25 Unknown History cholecalciferol (vitamin D3) 50 50 mcg PO DAILY 08/04/24 02/04/25 Unknown History mcg (2,000 unit) capsule Allergies Allergy/AdvReac Type Severity Reaction Status Date / Time No Known Allergies Allergy Verified 02/22/25 08:17 Review of Systems Constitutional: Constitutional: Reports no additional constitutional complai nts ENT: Reports system reviewed and no additional complaints, except as documented Integumentary/Breasts: Skin/Breast: Reports system reviewed and no additional complaints, except as docu PMFSH Past Medical History Medical History A-fib Low back pain Superficial phlebitis and thrombophlebitis of left leg Pelvic pain Impingement syndrome, shoulder, left Acute meniscal tear of left knee Varicose vein of leg Partial tear of right rotator cuff Impingement syndrome of right shoulder Biceps tendinopathy of right upper extremity Morbid obesity with BMI of 40.0-44.9, adult Essential (primary) hypertension Hyperlipidemia, unspecified Hypothyroidism (acquired) Migraine with aura, not intractable, without status migrainosus KRISTOFER (obstructive sleep apnea) CPAP Obstructive sleep apnea (adult) (pediatric) Perimenopausal Prehypertension Vaginal delivery x 2 Anxiety Hypertension Hypothyroid Surgical History Surgical History Status post phlebectomy Status post right rotator cuff repair History of repair of right rotator cuff (~12/29/20) Rt, with Subacromial Decompression History of dilatation and curettage (~2002) H/O hernia repair (~2014) Previous section History of cholecystectomy Family History Family History Mother Myocardial infarction Diabetes mellitus Atrial fibrillation Grandparent Cancer, colon Sibling Hypertension Hypolipidemia Grandparent Atrial fibrillation Social History Social History Social History: The patient lives with her who is the durable power environmental attorney for healthcare. She works for [employer]. She has 4 children. She is a lifelong nonsmoker. She does not use any alcohol marijuana or illicit drugs. Code status full Smoking status: Never smoker Second hand tobacco smoke exposure: No Alcohol intake: never Substance use: never Substance use type: does not use Do You Feel Safe in your Home?: Yes Lack of Transportation: No Lack of Food: Never True Current Housing: I Have Housing Concerned About Future Housing: No Difficulty Paying Gas/Electric Bills: No Difficulty Paying for Meds: No Currently Unemployed: No Education: Bachelor's Degree Difficulty w/ Childcare or Family Care: No Living arrangements: with family Gender identity (if verbalized by the patient): Female Sexual Orientation (if Verbalized by the Patient): Straight or Heterosexual Spiritual care concerns: No Exam Narrative: GENERAL: Well-appearing, well-nourished, and in no acute distress. HEAD: Normocephalic, atraumatic. Scalp has some injection on the right side when compared to left but no large vesicles. ENT: Mucous membranes moist. TMs normal bilaterally. Posterior regular lymphadenopathy noted on the right side EYES: PERRLA, EOMI, no scleral injection, normal conjunctiva. NECK: Supple. Mild posterior lymphadenopathy posterior cervical chain. EXTREMITIES: Normal range of motion. No edema. NEURO: Alert and oriented x3. PSYCH: Normal mood and affect. Course Course Emergency Course: Suspect shingles flare of the scalp. Will start on Valtrex. Discussed with patient who verbalized understanding. Follow-up with PCP. Vital Signs Vital signs: Vital Signs Temperature 98.0 F 02/22/25 08:12 Pulse Rate 82 02/22/25 08:12 Respiratory Rate 18 02/22/25 08:12 Blood Pressure 196/112 H 02/22/25 08:12 Pulse Oximetry 99 02/22/25 08:12 Oxygen Delivery Room Air 02/22/25 08:12 Temperature 98.0 F 02/22/25 08:12 Pulse Rate 81 02/22/25 08:23 Respiratory Rate 19 02/22/25 08:23 Blood Pressure 160/105 H 02/22/25 08:23 Pulse Oximetry 99 02/22/25 08:23 Oxygen Delivery Room Air 02/22/25 08:12 Medical Decision Making Vital Signs Vital Signs: Vital Signs Temperature 98.0 F 02/22/25 08:12 Pulse Rate 82 02/22/25 08:12 Respiratory Rate 18 02/22/25 08:12 Blood Pressure 196/112 H 02/22/25 08:12 Pulse Oximetry 99 02/22/25 08:12 Oxygen Delivery Room Air 02/22/25 08:12 Temperature 98.0 F 02/22/25 08:12 Pulse Rate 81 02/22/25 08:23 Respiratory Rate 19 02/22/25 08:23 Blood Pressure 160/105 H 02/22/25 08:23 Pulse Oximetry 99 02/22/25 08:23 Oxygen Delivery Room Air 02/22/25 08:12 Discharge Plan Discharge Clinical Impression: Shingles Patient Disposition: Home Condition: Stable Instructions: Shingles (ED) Additional Instructions: Return the ER if you have fever 100.4? F, you cannot keep down food water, you have severe eye pain, or you have additional concerns. Follow-up with your primary care doctor. Patient Language: Swazi Prescriptions: New valacyclovir 1 gram tablet 1,000 mg PO TID Qty: 21 0RF hydrocodone-acetaminophen 5-325 mg tablet 1 tablet PO Q6H PRN (Reason: pain) Qty: 10 0RF No Action Mirena 21 mcg/24 hours (8 yrs) 52 mg intrauterine device 1 device I-UTERINE ONCE Rx Instructions: Inserted in 2018 eletriptan [Relpax] 40 mg tablet 40 mg PO ONCE PRN (Reason: migraine headache) Qty: 30 3RF nystatin 100,000 unit/gram powder 1 applic topical BID Qty: 15 0RF Ozempic 2 mg/dose (8 mg/3 mL) pen injector 2 mg subcut WEEKLY Qty: 9 3RF levothyroxine [Synthroid] 100 mcg tablet 100 mcg PO DAILY Qty: 90 2RF celecoxib 200 mg capsule 200 mg PO DAILY Qty: 90 0RF omeprazole 10 mg capsule,delayed release(DR/EC) 10 mg PO DAILY ondansetron HCl 4 mg tablet 4 mg PO Q6H PRN (Reason: Nausea) metoprolol tartrate 25 mg Tablet 25 mg PO Q2H PRN (Reason: for fast heart beats) Qty: 30 0RF Xarelto 20 mg tablet 20 mg PO DAILY@1700 Qty: 90 3RF lisinopril 10 mg tablet 10 mg PO DAILY Qty: 90 3RF cholecalciferol (vitamin D3) 50 mcg (2,000 unit) capsule 50 mcg PO DAILY Trintellix 10 mg tablet See Rx Instructions .ROUTE .COMPLEX Qty: 90 1RF Dose Instruction: TAKE 1 TABLET BY MOUTH DAILY Rx Instructions: TAKE 1 TABLET BY MOUTH DAILY Follow-up/Referrals: Montana Acosta MD [Primary Care Provider] - 1 Week
[2025-02-22 09:07] VITALS: BP 157/94; PULSE 74; RESP 16; O2SAT 96
--- OUTSIDE RECORDS SUMMARY | 2025-02-22 09:26 | XMS_ITS | Clinical Summary ---
Author Organization [address] Address [facility] [place] [address] Care Team Providers Care Junior Buyer Name Role Phone Montana Acosta MD Primary Care Provider [phone] Allergies No known active allergies Medications lisinopriL [...] mcg tablet Take 100 mcg by mouth header boss before breakfast 04/10/202 4 Active Active Problems [...] meantime Assessment & Plan (11/14/2023 10:11 AM ARCHITECTURAL PROJECT MANAGER): Impression: Bulky varicosities are noted to the [...] 11/14/2023 Assessment & Plan (11/14/2023 10:09 AM ARCHITECTURAL PROJECT MANAGER): Impression: Chronic and stable. Plan: Continue lisinopril Type 2 diabetes mellitus wit hout complication, without long-term current use of insulin 11/14/2023 Assessment & Plan (11/14/2023 10:09 AM ARCHITECTURAL PROJECT MANAGER): Impression: Chronic with good glucose control. Plan: Continue metformin and Ozempic Hypokalemia due to loss of potassium 10/04/2023 Morbid obesity with BMI of 40.0-44.9, adult 05/2023 KRISTOFER (obstructive sleep apnea) 10/04/2023 Paroxysmal atrial fibrillation 10/04/2023 Encounters Date Type Department Care Team Description 11/25/2024 8:00 AM ARCHITECTURAL PROJECT MANAGER Office Visit [facility] Medical Group Cardiology [address] [place] [address] Suhas Celestin MD Paroxysmal atrial [...] on file Legal Sex Female 1:13 AM ARCHITECTURAL PROJECT MANAGER Gender Identity Not on file Sexual Orientation Not on file Obstetrics History Last Filed Vital Signs Vital Sign Reading Time Taken Comments Blood Pressure 124/82 11/25/2024 7:55 AM ARCHITECTURAL PROJECT MANAGER Pulse 73 11/25/2024 7:55 AM ARCHITECTURAL PROJECT MANAGER Temperature - - Respiratory Rate - - Oxygen Saturation 97% 11/25/2024 7:55 AM ARCHITECTURAL PROJECT MANAGER Inhaled Oxygen Concentration - - Weight 106.1 kg (234 lb) 11/25/2024 7:55 AM ARCHITECTURAL PROJECT MANAGER Height 162.6 cm (5' 4 ) 11/25/2024 7:55 AM ARCHITECTURAL PROJECT MANAGER Body Mass Index 40.17 11/25/2024 7:55 AM ARCHITECTURAL PROJECT MANAGER Plan of Treatment Health Maintenance Due Date [...] Read Routine (OP Routine) 12/08/2019 9:32 AM ARCHITECTURAL PROJECT MANAGER Encounter for screening mammogram for malignant neoplasm [...] BLOOD ORDERABLES Grecia l Result BALDEMAR [facility] [address] [place] [address] * Screening Mammogram Bilateral W Nabor (12/08/2019 9:32 AM ARCHITECTURAL PROJECT MANAGER) Anatomical Region Laterality Modality Breast Bilateral Mammography Narrative 12/10/2019 9:55 AM ARCHITECTURAL PROJECT MANAGER Mammogram Technique: Bilateral Digital Breast Tomosynthesis, Bilateral C-view 2D Screening mammogram. Views obtained: bilateral craniocaudal and bilateral mediolateral oblique. Computer Aided Detection was performed. Mammogram Findings: The present examination has been compared to a prior imaging study performed at [facility] on 12/25/2017. The breasts are heterogeneously [...] to a prior imaging study performed at [facility] on 12/25/2017. The breasts are heterogeneously dense, which may obscure small masses. There is no suspicious abnormality in either breast. Impression: Annual screening mammography is recommended. OVERALL FINAL ASSESSMENT: BI-RADS CATEGORY 1: Negative. Mark Lee MD IMG MAMMO PROCEDURES Final Result from Last 3 Months or Most Recently Relevant to Health Maintenance Insurance [employer] [place] [employer] [place] Care Teams Junior Buyer Relationship Specialty Start Date End Date Montana Acosta MD PCP - General 01/03/18
--- OUTSIDE RECORDS SUMMARY | 2025-02-22 09:26 | XMS_ITS | Referral Summary ---
Author Organization [place] [id number] [facility] Address [facility] [place] [address] Care Team Providers Care Feedlot Manager Name Role Phone Montana Acosta MD Primary Care Provider [phone] Encounters Date Type Department Care Team Description 11/25/2024 8:00 AM OUTSIDE PARTS SALES Office Visit [facility] Medical Group Cardiology [address] [place] [address] Suhas Celestin MD Paroxysmal atrial [...] mcg tablet Take 100 mcg by mouth pelletizer before breakfast Active Active Problems Problem Noted [...] meantime Assessment & Plan (11/14/2023 10:11 AM OUTSIDE PARTS SALES): Impression: Bulky varicosities are noted to the [...] 11/14/2023 Assessment & Plan (11/14/2023 10:09 AM OUTSIDE PARTS SALES): Impression: Chronic and stable. Plan: Continue lisinopril Type 2 diabetes mellitus wit hout complication, without long-term current use of insulin 11/14/2023 Assessment & Plan (11/14/2023 10:09 AM OUTSIDE PARTS SALES): Impression: Chronic with good glucose control. Plan: [...] on file Legal Sex Female 1:13 AM OUTSIDE PARTS SALES Gender Identity Not on file Sexual Orientation Not on file Last Filed Vital Signs Vital Sign Reading Time Taken Comments Blood Pressure 124/82 11/25/2024 7:55 AM OUTSIDE PARTS SALES Pulse 73 11/25/2024 7:55 AM OUTSIDE PARTS SALES Temperature - - Respiratory Rate - - Oxygen Saturation 97% 11/25/2024 7:55 AM OUTSIDE PARTS SALES Inhaled Oxygen Concentration - - Weight 106.1 kg (234 lb) 11/25/2024 7:55 AM OUTSIDE PARTS SALES Height 162.6 cm (5' 4 ) 11/25/2024 7:55 AM OUTSIDE PARTS SALES Body Mass Index 40.17 11/25/2024 7:55 AM OUTSIDE PARTS SALES Plan of Treatment Not on file Procedures Procedure Name Priority Date/Time Associated Diagnosis Comments POCT LIPID PANEL Routine 04/09/2024 7:56 AM CDT Lipid screening BASIC METABOLIC PANEL Routine 07/24/2023 7:53 AM CDT Hypokalemia due to loss of potassium SCREENING MAMMOGRAM BILATERAL W NABOR Schedule Routine, Read Routine (OP Routine) 12/08/2019 9:32 AM OUTSIDE PARTS SALES Encounter for screening mammogram for malignant neoplasm [...] BLOOD ORDERABLES Grecia l Result QUEST [facility] [address] [address] * Screening Mammogram Bilateral W Nabor (12/08/2019 9:32 AM OUTSIDE PARTS SALES) Anatomical Region Laterality Modality Breast Bilateral Mammography Narrative 12/10/2019 9:55 AM OUTSIDE PARTS SALES Mammogram Technique: Bilateral Digital Breast Tomosynthesis, Bilateral C-view 2D Screening mammogram. Views obtained: bilateral craniocaudal and bilateral mediolateral oblique. Computer Aided Detection was performed. Mammogram Findings: The present examination has been compared to a prior imaging study performed at [facility] on 12/25/2017. The breasts are [...] to a prior imaging study performed at [facility] on 12/25/2017. The breasts are heterogeneously dense, which may obscure small masses. There is no suspicious abnormality in either breast. Impression: Annual screening mammography is recommended. OVERALL FINAL ASSESSMENT: BI-RADS CATEGORY 1: Negative. Mark Lee MD IMG MAMMO PROCEDURES Final Result from Last 3 Months or Most Recently Relevant to Health Maintenance Insurance [employer] [place] BLUE ACCESS [facility] Care Teams Feedlot Manager Relationship Specialty Start Date End Date Montana Acosta MD PCP - General 01/03/18
--- OUTSIDE RECORDS SUMMARY | 2025-02-22 09:26 | XMS_ITS | Clinical Summary ---
Author Organization [address] Address [address] [facility] 3rd [place] [address] Phone Care Team Providers Care Sanitary Plumber Name Role Phone Nuno Smith MD Primary Care Provider [phone] Social History Tobacco Use Types Packs/Day Years Used Date Smoking Tobacco: Never Assessed Comments Unknown Sex and Gender Information Value Date Recorded Sex Assigned at Not on file Legal Sex Female 8:10 AM DESKTOP SUPPORT CONSULTANT Gender Identity Not on file Sexual Orientation [...] years 2021 INFLUENZA VACCINE (#1) 2024 Insurance [facility] [id number] Care Teams Sanitary Plumber Relationship Specialty Start Date End Date Nuno Smith MD PCP - General Family Practice 11/10/12
== END 2025-02-22 09:09 | disposition home or self-care (01) ==
LOC: ANHED 08:56
PROVIDERS: Emergency Provider Emergency Medicine; PCP Family Medicine
DX: B02.9 Zoster without complications (principal); I48.91 Unspecified atrial fibrillation; I10 Essential (primary) hypertension; E66.01 Morbid (severe) obesity due to excess calories; Z68.41 Body mass index [BMI] 40.0-44.9, adult; E03.9 Hypothyroidism, unspecified; E78.5 Hyperlipidemia, unspecified; G47.33 Obstructive sleep apnea (adult) (pediatric); F41.9 Anxiety disorder, unspecified; Z90.49 Acquired absence of other specified parts of digestive tract; Z97.5 Presence of (intrauterine) contraceptive device; Z79.85 Long-term (current) use of injectable non-insulin antidiabetic drugs; Z79.899 Other long term (current) drug therapy; Z79.01 Long term (current) use of anticoagulants; Z79.1 Long term (current) use of non-steroidal anti-inflammatories (NSAID)
CPT/HCPCS: 99283

== ENCOUNTER 2025-04-07 08:07 | Outpatient (CLI) | payer BC, SELFPAY ==
--- NOTE | ~2025-04-07 | MR_ITS ---
MRI of the left knee Clinical history: Meniscal tear Technique: Coronal proton density and proton density-weighted images, sagittal proton-density and T2 fat-sat images, and axial proton-density fat-saturated images were acquired. Findings: Anterior and posterior cruciate ligaments are intact. Medial collateral ligament and the la teral collateral ligament complex are intact. Popliteus tendon is intact. There is large radial tear at the posterior root of the medial meniscus. Possible superimposed horizo ntal tear extending from the posterior horn into the body segment. Lateral meniscus intact. There is high-grade chondromalacia at the patellar apex with focal subchondral cystic change/marrow e francisco javier. There is diffuse moderate chondral thinning of the medial compartment. Articular cartilage in t he lateral compartment is well preserved. There are small medial joint line osteophytes. Extensor mechanism is intact. Minimal joint effusion present. Small Romero's cyst. Impression: Large radial tear of the posterior root of the medial meniscus with possible cirrhosis horizontal tea r of the posterior horn and body segment. Degenerative changes, as detailed above. Small Romero's cyst. Reviewed, dictated and finalized at location . Impression: Large radial tear of the posterior root of the medial meniscus with possible ci rrhosis horizontal tear of the posterior horn and body segment. Degenerative changes, as detailed above. Small Romero's cyst.
== END 2025-04-07 08:08 | disposition home or self-care (01) ==
LOC: GOSHIMG 08:08
PROVIDERS: PCP Orthopaedic Surgery; Visit Provider Orthopaedic Surgery
DX: S83.242A Other tear of medial meniscus, current injury, left knee, initial encounter (principal); M71.22 Synovial cyst of popliteal space [Baker], left knee
CPT/HCPCS: 73721